=== PATIENT | female | born 1965 | race Caucasian/White ===

== ENCOUNTER 2018-09-23 00:10 | Emergency (ER) | payer SELFPAY ==
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
[2018-09-23] MEDS ORDERED: TETANUS & DIPHTHERIA TOX,ADULT 0.5 ML VIAL ONE (02:07)
[2018-09-23] MEDS ORDERED: HYDROCODONE/APAP 7.5/325 MG TAB ONE (02:07)
[2018-09-23 02:32] VITALS: BP 129/76; TEMP 97.7; O2SAT 99
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
== END 2018-09-23 02:19 | disposition home or self-care (01) ==
LOC: ER 00:10
DX: S90.811A Abrasion, right foot, initial encounter (principal); S90.31XA Contusion of right foot, initial encounter; S50.811A Abrasion of right forearm, initial encounter; M54.5 Low back pain; V48.4XXA Person boarding or alighting a car injured in noncollision transport accident, initial encounter; E03.9 Hypothyroidism, unspecified; F41.9 Anxiety disorder, unspecified; Z88.5 Allergy status to narcotic agent; Z23 Encounter for immunization
CPT/HCPCS: 90471; 90714; 99284

== ENCOUNTER 2019-02-22 18:20 | Emergency (ER) | payer SELFPAY ==
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
[2019-02-22 20:52] LABS: Absolute Lymphocytes (CBC) 2.6 K/uL (0.7-4.9); Basophils % 0.7 % (0-1.3); Hematocrit 38.4 % (36.0-45.0); Lymphocytes % 32.1 % (15.3-44.8); MPV 9.2 fL (7.6-11.3); RBC Red Blood Cell Count 4.45 M/uL (3.86-4.86)
[2019-02-22 21:04] LABS: BUN Blood Urea Nitrogen 20 mg/dL (7-18); Bicarbonate 28 mmol/L (21-32); Glucose Level 98 mg/dL (74-106); Potassium 3.7 mmol/L (3.5-5.1); Sodium Level 144 mmol/L (136-145); Troponin (Emerg Dept Use Only) < 0.02 ng/mL (0.0-0.045)
[2019-02-22] MEDS ORDERED: NA CHLORIDE 0.9% 1,000 ML ONE (21:21)
--- NOTE | 2019-02-22 21:45 | ER ---
Nurse's Notes [facility] Name: Neris Cano Age: 53 yrs Sex: Female : 1965 Arrival Date: 02/22/2019 Time: 18:22 Bed 26 Private MD: Diagnosis: Weakness Presentation: 02/22 18:25 Presenting complaint: Fatigue, sinus pressure, body aches, and headache since this hb morning. Denies fever/cough. Transition of care: patient was not received from another setting of care. Onset of symptoms was February 22, 2019. Risk Assessment: Do you want to hurt yourself or someone else? Patient reports no desire to harm self or others. Initial Sepsis Screen: Does the patient meet any 2 criteria? No. Patient's initial sepsis screen is negative. Does the patient have a suspected source of infection? No. Patient's initial sepsis screen is negative. Care prior to arrival: None. 18:25 Method Of Arrival: Ambulatory hb 18:25 Acuity: KIANA 4 hb Triage Assessment: 20:19 Headache History: Other pt stated she has been having headache for 27 yrs. General: jv1 Appears in no apparent distress. Behavior is calm, cooperative, appropriate for age. Pain: Pain. Pain: Complains of pain in head Pain began 1 day ago. Also complains of fatigue. EENT: No deficits noted. Neuro: No deficits noted. Cardiovascular: Denies chest pain, shortness of breath. Respiratory: Airway is patent Breath sounds are clear GI: No deficits noted. Abdomen is round Bowel sounds present X 4 quads. : No signs and/or symptoms were reported regarding the genitourinary system. Reports. Derm: No signs and/or symptoms reported regarding the dermatologic system. Skin is intact, is healthy with good turgor, Skin is Skin is pink, warm \T\ dry. Skin temperature is warm. Musculoskeletal: No deficits noted. No signs and/or symptoms reported regarding the musculoskeletal system. 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 - Social history:: Smoking status: Patient/guardian denies using tobacco. - Ebola Screening: : No symptoms or risks identified at this time. Screenin:18 Abuse screen: Denies threats or abuse. Nutritional screening: No deficits noted. jv1 Tuberculosis screening: No symptoms or risk factors identified. Fall Risk None identified. Assessment: 20:00 General: Appears in no apparent distress. Behavior is calm, cooperative, appropriate jv1 for age. Pain: Complains of pain in head Pain does not radiate. Pain currently is 5 out of 10 on a pain scale. Quality of pain is described as aching. Neuro: No deficits noted. Cardiovascular: Denies chest pain, diaphoresis, pt complains of fatigue. Respiratory: Reports Airway is patent Breath sounds are clear bilaterally. GI: No deficits noted. : No signs and/or symptoms were reported regarding the genitourinary system. EENT: No signs and/or symptoms were reported regarding the EENT system. Derm: Skin is intact, is healthy with good turgor, Skin is dry, Skin is pink, warm \T\ dry. Musculoskeletal: No signs and/or symptoms reported regarding the musculoskeletal system. 21:00 Reassessment: Patient appears in no apparent distress at this time. Patient is alert, jv1 oriented x 3, equal unlabored respirations, skin warm/dry/pink. 22:00 Reassessment: Patient appears in no apparent distress at this time. Patient and/or jv1 family updated on plan of care and expected duration. Pain level reassessed. Patient is alert, oriented x 3, equal unlabored respirations, skin warm/dry/pink. 22:00 Reassessment: Patient appears in no apparent distress at this time. Patient and/or jv1 family updated on plan of care and expected duration. Pain level reassessed. Patient is alert, oriented x 3, equal unlabored respirations, skin warm/dry/pink. IV bolus finished. 22:00 Reassessment: Patient appears in no apparent distress at this time. Patient and/or jv1 family updated on plan of care and expected duration. Pain level reassessed. Patient is alert, oriented x 3, equal unlabored respirations, skin warm/dry/pink. Vital Signs: 18:28 BP 134 / 71; Pulse 71; Resp 16; Temp 97.8; Pulse Ox 99% on R/A; Weight 117.93 kg; hb Height 5 ft. 4 in. (162.56 cm); Pain 4/10; 19:30 BP 135 / 70; Pulse 70; Resp 18; Temp 98; Pulse Ox 100% ; jv1 20:30 BP 133 / 73; Pulse 75; Resp 18; Temp 98; Pulse Ox 100% ; jv1 21:30 BP 125 / 70; Pulse 70; Resp 18; Temp 98.1; Pulse Ox 100% ; jv1 22:30 BP 115 / 70; Pulse 69; Resp 18; Temp 98.5; Pulse Ox 100% ; Pain 0/10; jv1 18:28 Body Mass Index 44.63 (117.93 kg, 162.56 cm) hb ED Course: 18:22 Patient arrived in ED. as 18:27 Triage completed. hb 18:28 Arm band placed on. hb 19:53 Jeffrey Williamson MD is Attending Physician. 20:25 XRAY Chest (1 view) In Process Unspecified. EDMS 20:25 Patient has correct armband on for positive identification. Bed in low position. Call jv1 light in reach. Side rails up X 1. Adult w/ patient. 20:30 Inserted saline lock: 22 gauge in left antecubital area, using aseptic technique. labs jv1 drawn and sent to lab. 21:25 Liam Saavedra, LUCRETIA is Primary Nurse. mg2 22:30 No provider procedures requiring assistance completed. IV discontinued, intact, jv1 bleeding controlled, No redness/swelling at site. Pressure dressing applied. Administered Medications: 21:25 Drug: NS 0.9% 1000 ml Route: IV; Rate: 1 bolus; Site: left antecubital; mg2 22:00 Follow up: Response: No adverse reaction jv1 22:55 Follow up: Response: No adverse reaction; IV Status: Completed infusion; IV Intake: mg2 1000ml Intake: 22:55 IV: 1000ml; Total: 1000ml. mg2 Outcome: 21:43 Discharge ordered by . gs 22:39 Discharged to home ambulatory, with significant other. jv1 22:39 Condition: improved 22:39 Discharge instructions given to Instructed on discharge instructions, follow up and referral plans. POC 22:56 Patient left the ED. mg2 Signatures: Dispatcher [employer] EDIA Gladys Cano Heather, RN RN Jeffrey Williamson MD MD Liam Saavedra RN RN mg2 Venice Lozoya RN RN jv1 Corrections: (The following items were deleted from the chart) 22: 21:11 General: Appears in no apparent distress. Behavior is calm, cooperative, jv1 appropriate for age, jv1 : 22:01 BP 135 / 75; Pulse 74 bpm; Resp 18 bpm; Temp 98; Pulse Ox 100% jv1 jv1 : 22:02 Response: No adverse reaction jv1 jv1
--- NOTE | 2019-02-22 21:45 | EDPHYS ---
Physician Documentation [facility] Name: Neris Cano Age: 53 yrs Sex: Female : 1965 Arrival Date: 02/22/2019 Time: 18:22 Bed 26 Private MD: ED Physician Jeffrey Williamson HPI: 02/22 21:34 This 53 yrs old Female presents to ER via Ambulatory with complaints of gs chills body aches. 21:35 Onset: The symptoms/episode began/occurred this morning. Modifying factors: there are gs no obvious modifying factors. Associated signs and symptoms: Pertinent positives: arthralgias, chills, headache, myalgias. Severity of symptoms: At their worst the symptoms were moderate in the emergency department the symptoms are unchanged. The patient has experienced similar episodes in the past, a few times, says headache gradual onset has had similar in the past. The patient has not recently seen a physician. 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 - Social history:: Smoking status: Patient/guardian denies using tobacco. - Ebola Screening: : No symptoms or risks identified at this time. ROS: 21:35 All other systems are negative. gs Exam: 21:35 Head/Face: Normocephalic, atraumatic. Eyes: Pupils equal round and reactive to light, gs extra-ocular motions intact. Lids and lashes normal. Conjunctiva and sclera are non-icteric and not injected. Cornea within normal limits. Periorbital areas with no swelling, redness, or edema. ENT: Nares patent. No nasal discharge, no septal abnormalities noted. Tympanic membranes are normal and external auditory canals are clear. Oropharynx with no redness, swelling, or masses, exudates, or evidence of obstruction, uvula midline. Mucous membranes moist. Neck: Trachea midline, no thyromegaly or masses palpated, and no cervical lymphadenopathy. Supple, full range of motion without nuchal rigidity, or vertebral point tenderness. No Meningismus. Chest/axilla: Normal chest wall appearance and motion. Nontender with no deformity. No lesions are appreciated. Cardiovascular: Regular rate and rhythm with a normal S1 and S2. No gallops, murmurs, or rubs. Normal PMI, no JVD. No pulse deficits. Respiratory: Lungs have equal breath sounds bilaterally, clear to auscultation and percussion. No rales, rhonchi or wheezes noted. No increased work of breathing, no retractions or nasal flaring. Abdomen/GI: Soft, non-tender, with normal bowel sounds. No distension or tympany. No guarding or rebound. No evidence of tenderness throughout. Back: No spinal tenderness. No costovertebral tenderness. Full range of motion. Skin: Warm, dry with normal turgor. Normal color with no rashes, no lesions, and no evidence of cellulitis. MS/ Extremity: Pulses equal, no cyanosis. Neurovascular intact. Full, normal range of motion. Neuro: Awake and alert, GCS 15, oriented to person, place, time, and situation. Cranial nerves II-XII grossly intact. Motor strength 5/5 in all extremities. Sensory grossly intact. Cerebellar exam normal. Normal gait. 21:35 Constitutional: The patient appears alert, awake. 21:35 ECG was reviewed by the Attending Physician. Vital Signs: 18:28 BP 134 / 71; Pulse 71; Resp 16; Temp 97.8; Pulse Ox 99% on R/A; Weight 117.93 kg; hb Height 5 ft. 4 in. (162.56 cm); Pain 4/10; 19:30 BP 135 / 70; Pulse 70; Resp 18; Temp 98; Pulse Ox 100% ; jv1 20:30 BP 133 / 73; Pulse 75; Resp 18; Temp 98; Pulse Ox 100% ; jv1 21:30 BP 125 / 70; Pulse 70; Resp 18; Temp 98.1; Pulse Ox 100% ; jv1 22:30 BP 115 / 70; Pulse 69; Resp 18; Temp 98.5; Pulse Ox 100% ; Pain 0/10; jv1 18:28 Body Mass Index 44.63 (117.93 kg, 162.56 cm) hb MDM: 20:11 Patient medically screened. gs 21:35 Differential diagnosis: viral Infection, bacterial infection, pneumonia cad. Data gs reviewed: vital signs, nurses notes, lab test result(s), EKG, radiologic studies. Counseling: I had a detailed discussion with the patient and/or guardian regarding: the historical points, exam findings, and any diagnostic results supporting the discharge/admit diagnosis, lab results, radiology results, the need for outpatient follow up. Response to treatment: the patient's symptoms have markedly improved after treatment. 02/22 18:28 Order name: Flu; Complete Time: 19:53 hb 02/22 20:13 Order name: Basic Metabolic Panel; Complete Time: 21:08 gs 02/22 20:13 Order name: CBC with Diff; Complete Time: 21: gs 02/22 20:13 Order name: Troponin (emerg Dept Use Only); Complete Time: 21: gs 02/22 20:13 Order name: XRAY Chest (1 view); Complete Time: 20:38 gs 02/22 20:13 Order name: EKG; Complete Time: 20:13 gs 02/22 20:13 Order name: Cardiac monitoring; Complete Time: 21:07 gs 02/22 20:13 Order name: EKG - Nurse/Tech; Complete Time: 21: gs 02/22 20:13 Order name: IV Saline Lock; Complete Time: 21: gs 02/22 20:13 Order name: Labs collected and sent; Complete Time: 21: gs 02/22 20:13 Order name: O2 Per Protocol; Complete Time: 21: 02/22 20:13 Order name: O2 Sat Monitoring; Complete Time: 21:07 gs EC:35 Rate is 64 beats/min. Rhythm is regular. [place] interval is normal. QRS interval is normal. gs QT interval is normal. T waves are Flattened. Clinical impression: NSR w/ Non-specific ST/T Changes. Interpreted by me. Administered Medications: 21:25 Drug: NS 0.9% 1000 ml Route: IV; Rate: 1 bolus; Site: left antecubital; mg2 22:00 Follow up: Response: No adverse reaction jv1 22:55 Follow up: Response: No adverse reaction; IV Status: Completed infusion; IV Intake: mg2 1000ml Disposition: 02/22/19 21:43 Discharged to Home. Impression: Weakness. - Condition is Stable. - Discharge Instructions: Weakness. - Medication Reconciliation Form, Thank You Letter, Antibiotic Education, Prescription Opioid Use form. - Follow up: Private Physician; When: 2 - 3 days; Reason: Re-evaluation by your physician. Signatures: Dispatcher [employer] EDGrace Del Real RN RN Jeffrey Williamson MD MD Liam Saavedra RN RN mg2 Venice Lozoya RN jv1 Corrections: (The following items were deleted from the chart) 22:56 21:43 02/22/2019 21:43 Discharged to Home. Impression: Weakness. Condition is Stable. mg2 Forms are Medication Reconciliation Form, Thank You Letter, Antibiotic Education, Prescription Opioid Use. Follow up: Private Physician; When: 2 - 3 days; Reason: Re-evaluation by your physician. gs
[2019-02-22 23:33] VITALS: O2SAT 100
[2019-02-22 23:38] VITALS: BP 115/70; TEMP 98.5
--- NOTE | 2019-02-23 07:23 | EKG ---
Test Date: 2019-02-22 Test Time: 21:15:44 Vice President Integrated: MEASUREMENT RESULTS: Intervals: Rate: 64 CA: 168 QRSD: 84 QT: 416 QTc: 429 [place]: P: 41 CA: 168 QRS: 45 T: 44 INTERPRETIVE STATEMENTS: Normal sinus rhythm Low voltage QRS Cannot rule out Anterior infarct, age undetermined Abnormal ECG Compared to ECG 01/02/2013 00:46:21 Myocardial infarct finding now present Electronically Signed On 02-23-19 07:21:52 CDT by Jeet Link
== END 2019-02-22 22:56 | disposition home or self-care (01) ==
LOC: ER 18:20
DX: R53.1 Weakness (principal); E03.9 Hypothyroidism, unspecified; Z88.5 Allergy status to narcotic agent; Z91.018 Allergy to other foods
CPT/HCPCS: 36415; 71045; 80048; 84484; 85025; 87804; 93005; 96360; 99284; J7030

== ENCOUNTER 2019-03-18 20:26 | Emergency (ER) | payer BC, SELFPAY ==
--- NOTE | 2019-03-18 21:06 | ER ---
Nurse's Notes [facility] Name: Neris Cano Age: 53 yrs Sex: Female : 1965 Arrival Date: 03/18/2019 Time: 20:27 Bed 24 Private MD: Diagnosis: Streptococcal pharyngitis Presentation: 03/18 20:34 Presenting complaint: Patient states: Sore throat since Tuesday now she is having pain aj1 in her ear and cough. Denies fever. Transition of care: patient was not received from another setting of care. Onset of symptoms was 2018. Risk Assessment: Do you want to hurt yourself or someone else? Patient reports no desire to harm self or others. Initial Sepsis Screen: Does the patient meet any 2 criteria? No. Patient's initial sepsis screen is negative. Does the patient have a suspected source of infection? Yes: Productive cough/pneumonia. Care prior to arrival: None. 20:34 Method Of Arrival: Ambulatory aj1 20:34 Acuity: KIANA 4 aj1 Triage Assessment: 20:35 General: Appears in no apparent distress. uncomfortable, Behavior is calm, cooperative, aj1 appropriate for age. Pain: Pain currently is 6 out of 10 on a pain scale. EENT: Reports sore throat, ear pain. Neuro: Level of Consciousness is awake, alert, obeys commands. Cardiovascular: Patient's skin is warm and dry. Respiratory: Airway is patent Respiratory effort is even, unlabored, Respiratory pattern is regular, symmetrical. 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 - Social history:: Smoking status: Patient/guardian denies using tobacco. - Ebola Screening: : Patient denies travel to an Ebola-affected area in the 21 days before illness onset. Screenin:12 Abuse screen: Denies threats or abuse. Nutritional screening: No deficits noted. tr5 Tuberculosis screening: No symptoms or risk factors identified. Fall Risk None identified. Assessment: 21:12 General: Appears uncomfortable. Pain: Complains of pain in right ear and left ear and tr5 throat. Neuro: Level of Consciousness is awake, alert, obeys commands. Cardiovascular: Heart tones present Respiratory: Airway Respiratory effort is even, unlabored, Respiratory pattern is regular, symmetrical. Respiratory: Reports cough that is. GI: No signs and/or symptoms were reported involving the gastrointestinal system. : No signs and/or symptoms were reported regarding the genitourinary system. EENT: Reports nasal congestion pain. Derm: No signs and/or symptoms reported regarding the dermatologic system. Musculoskeletal: No signs and/or symptoms reported regarding the musculoskeletal system. Vital Signs: 20:35 BP 114 / 83; Pulse 88; Resp 18; Temp 97.5; Pulse Ox 95% on R/A; Weight 117.93 kg (R); aj1 Height 5 ft. 4 in. (162.56 cm) (R); 20:35 Body Mass Index 44.63 (117.93 kg, 162.56 cm) aj1 ED Course: 20:27 Patient arrived in ED. ds1 20:34 Triage completed. aj1 20:35 Arm band placed on Patient placed in waiting room, Patient notified of wait time. aj1 20:45 Summer Ch[facility]vez FNP-C [facility] snw 20:45 Kyaw Monzon MD is Attending Physician. snw 21:00 Jagdish Riggins, LUCRETIA is Primary Nurse. tr5 21:12 Call light in reach. Side rails up X 1. tr5 21:27 No provider procedures requiring assistance completed. Patient did not have IV access tr5 during this emergency room visit. Administered Medications: 21:25 Drug: Decadron 8 mg Route: PO; tr5 21:26 Follow up: Response: Medication administered at discharge. tr5 21:26 Drug: Zithromax 500 mg Route: PO; tr5 21:26 Follow up: Response: Medication administered at discharge. tr5 Outcome: 21:06 Discharge ordered by . snw 21:27 Discharged to home ambulatory. tr5 21:27 Condition: stable 21:27 Discharge instructions given to patient, Instructed on discharge instructions, follow up and referral plans. medication usage, Demonstrated understanding of instructions, follow-up care, medications, Prescriptions given X 2. 21:29 Patient left the ED. tr5 Signatures: Mariangel Teran RN RN aj1 Summer Chávez, LEAD MASSAGE THERAPIST-C LEAD MASSAGE THERAPIST-Csnw Dawn Peters ds1 Jagdish Riggins RN RN tr5
--- NOTE | 2019-03-18 21:07 | EDPHYS ---
Physician Documentation [facility] Name: Neris Cano Age: 53 yrs Sex: Female : 1965 Arrival Date: 03/18/2019 Time: 20:27 Bed 24 Private MD: ED Physician Kyaw Monzon HPI: 03/18 21:30 This 53 yrs old Female presents to ER via Ambulatory with complaints of Sore snw Throat, Ear Pain. 21:30 The patient presents with sore throat. The patient describes throat pain as raw, snw scratchy. Onset: The symptoms/episode began/occurred suddenly, 3 day(s) ago, and became persistent. Severity of symptoms: At their worst the symptoms were moderate. Associated signs and symptoms: Pertinent positives: earache. It is unknown whether or not the patient has had similar symptoms in the past. The patient has not recently seen a physician. 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 - Social history:: Smoking status: Patient/guardian denies using tobacco. - Ebola Screening: : Patient denies travel to an Ebola-affected area in the 21 days before illness onset. ROS: 21:28 Eyes: Negative for injury, pain, redness, and discharge. snw 21:28 Neck: Negative for injury, pain, and swelling, Cardiovascular: Negative for chest pain, palpitations, and edema, Respiratory: Negative for shortness of breath, cough, wheezing, and pleuritic chest pain, Abdomen/GI: Negative for abdominal pain, nausea, vomiting, diarrhea, and constipation, Back: Negative for injury and pain, : Negative for injury, bleeding, discharge, and swelling, MS/Extremity: Negative for injury and deformity, Skin: Negative for injury, rash, and discoloration, Neuro: Negative for headache, weakness, numbness, tingling, and seizure, Psych: Negative for depression, anxiety, suicide ideation, homicidal ideation, and hallucinations. 21:28 Constitutional: Positive for body aches, malaise, poor PO intake. 21:28 ENT: Positive for ear pain, sore throat. Exam: 21:28 Constitutional: This is a well developed, well nourished patient who is awake, alert, snw and in no acute distress. Head/Face: Normocephalic, atraumatic. Eyes: Pupils equal round and reactive to light, extra-ocular motions intact. Lids and lashes normal. Conjunctiva and sclera are non-icteric and not injected. Cornea within normal limits. Periorbital areas with no swelling, redness, or edema. ENT: Nares patent. No nasal discharge, no septal abnormalities noted. Tympanic membranes are normal and external auditory canals are clear. Oropharynx with no redness, swelling, or masses, exudates, or evidence of obstruction, uvula midline. Mucous membranes moist. Neck: Trachea midline, no thyromegaly or masses palpated, and no cervical lymphadenopathy. Supple, full range of motion without nuchal rigidity, or vertebral point tenderness. No Meningismus. Chest/axilla: Normal chest wall appearance and motion. Nontender with no deformity. No lesions are appreciated. Cardiovascular: Regular rate and rhythm with a normal S1 and S2. No gallops, murmurs, or rubs. Normal PMI, no JVD. No pulse deficits. Respiratory: Lungs have equal breath sounds bilaterally, clear to auscultation and percussion. No rales, rhonchi or wheezes noted. No increased work of breathing, no retractions or nasal flaring. Abdomen/GI: Soft, non-tender, with normal bowel sounds. No distension or tympany. No guarding or rebound. No evidence of tenderness throughout. Back: No spinal tenderness. No costovertebral tenderness. Full range of motion. Skin: Warm, dry with normal turgor. Normal color with no rashes, no lesions, and no evidence of cellulitis. MS/ Extremity: Pulses equal, no cyanosis. Neurovascular intact. Full, normal range of motion. Neuro: Awake and alert, GCS 15, oriented to person, place, time, and situation. Cranial nerves II-XII grossly intact. Motor strength 5/5 in all extremities. Sensory grossly intact. Cerebellar exam normal. Normal gait. Psych: Awake, alert, with orientation to person, place and time. Behavior, mood, and affect are within normal limits. Vital Signs: 20:35 BP 114 / 83; Pulse 88; Resp 18; Temp 97.5; Pulse Ox 95% on R/A; Weight 117.93 kg (R); aj1 Height 5 ft. 4 in. (162.56 cm) (R); 20:35 Body Mass Index 44.63 (117.93 kg, 162.56 cm) aj1 MDM: 20:59 Patient medically screened. snw 03/18 20:28 Order name: Flu; Complete Time: 21:07 snw 03/18 20:28 Order name: Strep; Complete Time: 21:01 snw Administered Medications: 21:25 Drug: Decadron 8 mg Route: PO; tr5 21:26 Follow up: Response: Medication administered at discharge. tr5 21:26 Drug: Zithromax 500 mg Route: PO; tr5 21:26 Follow up: Response: Medication administered at discharge. tr5 Disposition: 03/19 00:40 Co-signature as Attending Physician, Kyaw Monzon MD. rn Disposition: 03/18/19 21:06 Discharged to Home. Impression: Streptococcal pharyngitis. - Condition is Stable. - Discharge Instructions: Fever, Adult, Strep Throat, Upper Respiratory Infection, Adult, Rehydration, Adult. - Prescriptions for Tessalon Perles 100 mg Oral Capsule - take 1 capsule by ORAL route every 8 hours As needed; 15 capsule. Zithromax 500 mg Oral Tablet - take 1 tablet by ORAL route once daily for 5 days; 5 tablet. - Work release form, Medication Reconciliation Form, Thank You Letter, Antibiotic Education, Prescription Opioid Use form. - Follow up: Private Physician; When: 2 - 3 days; Reason: Recheck today's complaints, Continuance of care, Re-evaluation by your physician. Follow up: Emergency Department; When: As needed; Reason: Worsening of condition. Signatures: Dispatcher [employer] Mariangel Fields RN RN aj1 Summer Chávez, SORTER OPERATOR-C SORTER OPERATOR-Csnw Kyaw Monzon MD MD rn Rodriguez, Tommie, RN RN tr5 Corrections: (The following items were deleted from the chart) 03/18 21:29 21:06 03/18/2019 21:06 Discharged to Home. Impression: Streptococcal pharyngitis. tr5 Condition is Stable. Forms are Medication Reconciliation Form, Thank You Letter, Antibiotic Education, Prescription Opioid Use. Follow up: Private Physician; When: 2 - 3 days; Reason: Recheck today's complaints, Continuance of care, Re-evaluation by your physician. Follow up: Emergency Department; When: As needed; Reason: Worsening of condition. snw
[2019-03-18] MEDS ORDERED: AZITHROMYCIN 250 MG TAB ONE (21:23)
[2019-03-18] MEDS ORDERED: dexAMETHasone 4 MG TAB ONE (21:23)
[2019-03-18 22:16] VITALS: BP 114/83; TEMP 97.5; O2SAT 95
== END 2019-03-18 21:29 | disposition home or self-care (01) ==
LOC: ER 20:26
DX: J02.0 Streptococcal pharyngitis (principal); Z91.018 Allergy to other foods; Z88.6 Allergy status to analgesic agent; E03.9 Hypothyroidism, unspecified
CPT/HCPCS: 87081; 87804; 99283; J8540

== ENCOUNTER 2019-06-16 11:24 | Emergency (ER) | payer BC ==
[2019-06-16] MEDS ORDERED: HYDROCODONE/APAP 10/325 TAB ONE (12:17)
[2019-06-16] MEDS ORDERED: IBUPROFEN 400 MG TAB ONE (12:17)
--- NOTE | 2019-06-16 12:32 | ER ---
Nurse's Notes [facility] Name: Neris Cano Age: 53 yrs Sex: Female : 1965 Arrival Date: 06/16/2019 Time: 11:26 Bed 6 Private MD: Jose Sadler Diagnosis: Pain in left foot-retrocalcaneal bursitis;Calcaneal spur, left foot Presentation: 06/16 11:35 Presenting complaint: Patient states: R ankle pain that patient noticed last night. No ss known injury. Transition of care: patient was not received from another setting of care. Onset of symptoms was June 15, 2019. Risk Assessment: Do you want to hurt yourself or someone else? Patient reports no desire to harm self or others. Initial Sepsis Screen: Does the patient meet any 2 criteria? No. Patient's initial sepsis screen is negative. Does the patient have a suspected source of infection? No. Patient's initial sepsis screen is negative. Care prior to arrival: None. 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 - Coronavirus screen:: The patient has NOT traveled to [place] in the past 14 days. Proceed with normal triage process as indicated. - Social history:: Smoking status: Patient denies any tobacco usage or history of. - Ebola Screening: : Patient denies exposure to infectious person Patient denies travel to an Ebola-affected area in the 21 days before illness onset. Screenin:10 Abuse screen: Denies threats or abuse. Nutritional screening: No deficits noted. em Tuberculosis screening: No symptoms or risk factors identified. Fall Risk None identified. Assessment: 12:10 General: Appears in no apparent distress. comfortable, Behavior is calm, cooperative. em Pain: Complains of pain in medial aspect of left heel and lateral side of left heel Pain currently is 0 out of 10 on a pain scale. at worst was 9 out of 10 on a pain scale. Aggravated by exercise, repositioning, weight bearing. Neuro: Level of Consciousness is awake, alert, obeys commands, Oriented to person, place, time, situation, Appropriate for age. Cardiovascular: Capillary refill < 3 seconds Patient's skin is warm and dry. Respiratory: Airway is patent Respiratory effort is even, unlabored, Respiratory pattern is regular, symmetrical. Derm: Skin is intact, is healthy with good turgor, Skin is pink, warm \T\ dry. Musculoskeletal: Circulation, motion, and sensation intact. Capillary refill < 3 seconds, Range of motion: limited in right ankle Swelling present in right ankle. 13:23 Reassessment: Patient appears in no apparent distress at this time. Patient and/or em family updated on plan of care and expected duration. Pain level reassessed. Patient is alert, oriented x 3, equal unlabored respirations, skin warm/dry/pink. Patient states feeling better. Vital Signs: 11:34 BP 142 / 63; Pulse 79; Resp 17; Temp 98.4(O); Pulse Ox 99% on R/A; Pain 7/10; ss 11:34 Weight 117.93 kg; Height 5 ft. 4 in. (162.56 cm); ss 12:30 BP 109 / 65; Pulse 77; Resp 17 S; Pulse Ox 99% on R/A; jl7 13:13 BP 100 / 61; Pulse 72; Resp 16 S; Pulse Ox 99% on R/A; jl7 11:34 Body Mass Index 44.63 (117.93 kg, 162.56 cm) ED Course: 11:26 Patient arrived in ED. mr 11:27 Jose Sadler is Private Physician. mr 11:30 Minh Norris MD is Attending Physician. rashida 11:34 Arm band placed on right wrist. ss 11:35 Triage completed. ss 11:52 Riaz Soto, LUCRETIA is Primary Nurse. em 12:10 Patient has correct armband on for positive identification. Bed in low position. Call em light in reach. Adult w/ patient. Pulse ox on. NIBP on. 12:31 Jose Sadler is Referral Physician. rashida 12:31 Poncho Palomo MD is Referral Physician. rashida 13:21 No provider procedures requiring assistance completed. Patient did not have IV access em during this emergency room visit. Administered Medications: 12:17 Drug: Ibuprofen 800 mg Route: PO; em 13:20 Follow up: Response: No adverse reaction; Pain is decreased em 12:17 Drug: Norwell 10 mg-325 mg 1 tabs Route: PO; em 13:20 Follow up: Response: No adverse reaction; Pain is decreased; RASS: Alert and Calm (0) em Outcome: 12:32 Discharge ordered by . rashida 13:22 Discharged to home with crutches, with family. em 13:22 Condition: good 13:22 Discharge instructions given to patient, family, Instructed on discharge instructions, follow up and referral plans. medication usage, Demonstrated understanding of instructions, follow-up care, medications, crutch walking, Prescriptions given X 2. 13:23 Patient left the ED. em Signatures: Minh Norris MD MD cha Rivera, Mary mr Munoz, Edgar RN RN Stephanie Franco RN RN ss Leal, Jahala, RN RN jl7
--- NOTE | 2019-06-16 12:33 | EDPHYS ---
Physician Documentation [facility] Name: Neris Cano Age: 53 yrs Sex: Female : 1965 Arrival Date: 06/16/2019 Time: 11:26 Bed 6 Private MD: Jose Sadler ED Physician Minh Norris HPI: 06/16 11:56 This 53 yrs old Female presents to ER via Ambulatory with complaints of Ankle rashida Injury. 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 - Coronavirus screen:: The patient has NOT traveled to [place] in the past 14 days. Proceed with normal triage process as indicated. - Social history:: Smoking status: Patient denies any tobacco usage or history of. - Ebola Screening: : Patient denies exposure to infectious person Patient denies travel to an Ebola-affected area in the 21 days before illness onset. ROS: 11:56 Constitutional: Negative for fever, chills, and weight loss, Eyes: Negative for injury, rashida pain, redness, and discharge, ENT: Negative for injury, pain, and discharge, Neck: Negative for injury, pain, and swelling, Cardiovascular: Negative for chest pain, palpitations, and edema, Respiratory: Negative for shortness of breath, cough, wheezing, and pleuritic chest pain, Abdomen/GI: Negative for abdominal pain, nausea, vomiting, diarrhea, and constipation, Back: Negative for injury and pain, : Negative for injury, bleeding, discharge, and swelling, Skin: Negative for injury, rash, and discoloration, Neuro: Negative for headache, weakness, numbness, tingling, and seizure, Psych: Negative for depression, anxiety, suicide ideation, homicidal ideation, and hallucinations, Allergy/Immunology: Negative for hives, rash, and allergies, Endocrine: Negative for neck swelling, polydipsia, polyuria, polyphagia, and marked weight changes, Hematologic/Lymphatic: Negative for swollen nodes, abnormal bleeding, and unusual bruising. 11:56 MS/extremity: Positive for pain, of the lateral side of left heel and medial aspect of left heel. Exam: 11:56 Constitutional: This is a well developed, well nourished patient who is awake, alert, rashida and in no acute distress. Head/Face: Normocephalic, atraumatic. Eyes: Pupils equal round and reactive to light, extra-ocular motions intact. Lids and lashes normal. Conjunctiva and sclera are non-icteric and not injected. Cornea within normal limits. Periorbital areas with no swelling, redness, or edema. ENT: Nares patent. No nasal discharge, no septal abnormalities noted. Tympanic membranes are normal and external auditory canals are clear. Oropharynx with no redness, swelling, or masses, exudates, or evidence of obstruction, uvula midline. Mucous membranes moist. Neck: Trachea midline, no thyromegaly or masses palpated, and no cervical lymphadenopathy. Supple, full range of motion without nuchal rigidity, or vertebral point tenderness. No Meningismus. Chest/axilla: Normal chest wall appearance and motion. Nontender with no deformity. No lesions are appreciated. Cardiovascular: Regular rate and rhythm with a normal S1 and S2. No gallops, murmurs, or rubs. Normal PMI, no JVD. No pulse deficits. Respiratory: Lungs have equal breath sounds bilaterally, clear to auscultation and percussion. No rales, rhonchi or wheezes noted. No increased work of breathing, no retractions or nasal flaring. Abdomen/GI: Soft, non-tender, with normal bowel sounds. No distension or tympany. No guarding or rebound. No evidence of tenderness throughout. Back: No spinal tenderness. No costovertebral tenderness. Full range of motion. Skin: Warm, dry with normal turgor. Normal color with no rashes, no lesions, and no evidence of cellulitis. Neuro: Awake and alert, GCS 15, oriented to person, place, time, and situation. Cranial nerves II-XII grossly intact. Motor strength 5/5 in all extremities. Sensory grossly intact. Cerebellar exam normal. Normal gait. Psych: Awake, alert, with orientation to person, place and time. Behavior, mood, and affect are within normal limits. 11:56 Musculoskeletal/extremity: Extremities: noted in the lateral side of left heel and medial aspect of left heel: decreased ROM, pain. Vital Signs: 11:34 BP 142 / 63; Pulse 79; Resp 17; Temp 98.4(O); Pulse Ox 99% on R/A; Pain 7/10; ss 11:34 Weight 117.93 kg; Height 5 ft. 4 in. (162.56 cm); ss 12:30 BP 109 / 65; Pulse 77; Resp 17 S; Pulse Ox 99% on R/A; jl7 13:13 BP 100 / 61; Pulse 72; Resp 16 S; Pulse Ox 99% on R/A; jl7 11:34 Body Mass Index 44.63 (117.93 kg, 162.56 cm) MDM: 11:30 Patient medically screened. [facility] 12:01 Data reviewed: vital signs, nurses notes, radiologic studies. [facility] 06/16 11:56 Order name: Foot Left 3 View XRAY [facility] 06/16 11:56 Order name: Ice pack; Complete Time: 13:20 [facility] 06/16 12:06 Order name: Post-op shoe; Complete Time: 13:20 [facility] 06/16 12:06 Order name: Crutches; Complete Time: 13:20 [facility] Administered Medications: 12:17 Drug: Ibuprofen 800 mg Route: PO; em 13:20 Follow up: Response: No adverse reaction; Pain is decreased em 12:17 Drug: Putnam 10 mg-325 mg 1 tabs Route: PO; em 13:20 Follow up: Response: No adverse reaction; Pain is decreased; RASS: Alert and Calm (0) em Disposition: 06/16/19 12:32 Discharged to Home. Impression: Pain in left foot - retrocalcaneal bursitis, Calcaneal spur, left foot. - Condition is Stable. - Discharge Instructions: Bursitis, Heel Spur, Musculoskeletal Pain, Bursitis, [id number], Foot Pain. - Prescriptions for Ibuprofen 600 mg Oral Tablet - take 1 tablet by ORAL route every 6 hours As needed take with food; 20 tablet. Tramadol 50 mg Oral Tablet - take 2 tablet by ORAL route every 8 hours as needed; 30 tablet. - Medication Reconciliation Form, Thank You Letter, Antibiotic Education, Prescription Opioid Use, Work release form form. - Follow up: Jose Sadler; When: 2 - 3 days; Reason: Recheck today's complaints, Continuance of care, Re-evaluation by your physician. Follow up: Dr. Poncho Palomo; When: 2 - 3 days; Reason: Recheck today's complaints, Re-evaluation by your physician. - Problem is new. - Symptoms have improved. Signatures: Dispatcher [employer] Minh Sanabria MD MD cha Munoz, Edgar, RN RN Stephanie Franco RN RN ss Corrections: (The following items were deleted from the chart) 13:23 12:32 06/16/2019 12:32 Discharged to Home. Impression: Pain in left foot - em retrocalcaneal bursitis; Calcaneal spur, left foot. Condition is Stable. Discharge Instructions: Bursitis, Musculoskeletal Pain, Bursitis, [id number], Foot Pain. Prescriptions for Ibuprofen 600 mg Oral Tablet - take 1 tablet by ORAL route every 6 hours As needed take with food; 20 tablet, Tramadol 50 mg Oral Tablet - take 2 tablet by ORAL route every 8 hours as needed; 30 tablet. and Forms are Medication Reconciliation Form, Thank You Letter, Antibiotic Education, Prescription Opioid Use. Follow up: Jose Sadler; When: 2 - 3 days; Reason: Recheck today's complaints, Continuance of care, Re-evaluation by your physician. Follow up: Dr. Poncho Palomo; When: 2 - 3 days; Reason: Recheck today's complaints, Re-evaluation by your physician. Problem is new. Symptoms have improved. rashida
--- NOTE | 2019-06-16 13:39 | RAD REPORT ---
EXAM DESCRIPTION: RAD - Foot Right 3 View - 06/16/2019 12:20 pm CLINICAL HISTORY: PAIN, nontraumatic COMPARISON: Foot Right 3 View dated 09/23/2018 FINDINGS: No fracture, dislocation or periosteal reaction. No acute bone or joint finding. Patient h as a moderately large plantar spur and a large spur at the Achilles attachment. Mild IP joint degener ative changes are present. There is mild degenerative change at the tarsal metatarsal articulation. B one and joint findings are similar to the 2018 comparison. No air or foreign body in the soft tissues. IMPRESSION: Negative right foot for acute finding. Above detailed findings are similar to the September 18 comparison.
[2019-06-16 13:40] VITALS: TEMP 98.4; O2SAT 99
[2019-06-16 13:49] VITALS: BP 100/61
== END 2019-06-16 13:23 | disposition home or self-care (01) ==
LOC: ER 11:24
DX: M77.31 Calcaneal spur, right foot (principal); M77.51 Other enthesopathy of right foot and ankle; Z91.018 Allergy to other foods; Z88.6 Allergy status to analgesic agent
CPT/HCPCS: 99284

== ENCOUNTER 2020-07-10 20:42 | Emergency (ER) | payer BC ==
--- OUTSIDE RECORDS SUMMARY | 2020-07-10 20:43 | XMS REPORT | Continuity of Care Document ---
:1965 Author Organization [facility] t Address [address] [place] [address] Care Team Providers Name Role Phone Unavailable Unavailable Unavailable Payers Payer Name Policy Type Policy Number Effective Date Expiration Date S ource Problems This patient has no known problems. Allergies, Adverse Reactions, Alerts This patient has no known allergies or adverse reactions. Medications This patient has no known medications. Procedures This patient has no known procedures. Results This patient has no known results.
[2020-07-11] MEDS ORDERED: NA CHLORIDE 0.9% 1,000 ML ONE (00:07)
[2020-07-11] MEDS ORDERED: MECLIZINE HCL 12.5 MG TAB ONE (00:07)
[2020-07-11] MEDS ORDERED: PROMETHAZINE INJ 25 MG/ML AMP ONE (00:07)
[2020-07-11] MEDS ORDERED: DIAZEPAM 10 MG/2 ML INJ SYRINGE ONE (00:43)
[2020-07-11 00:49] LABS: Basophils % 0.6 % (0-1.3); Hematocrit 41.5 % (36.0-45.0); Lymphocytes % 21.8 % (15.3-44.8); MPV 9.6 fL (7.6-11.3); RBC Red Blood Cell Count 4.93 M/uL (3.86-4.86)
[2020-07-11 01:04] LABS: ALT/SGPT 29 U/L (12-78); AST/SGOT 15 U/L (15-37); Albumin 3.8 g/dL (3.4-5.0); Alkaline Phosphatase 103 U/L (45-117); BUN Blood Urea Nitrogen 23 mg/dL (7-18); Bicarbonate 27 mmol/L (21-32); Bilirubin Direct < 0.1 mg/dL (0-0.2); Bilirubin Total 0.3 mg/dL (0.2-1.0); Glucose Level 102 mg/dL (74-106); Potassium 4.4 mmol/L (3.5-5.1); Protein, Total 7.7 g/dL (6.4-8.2); Sodium Level 140 mmol/L (136-145)
[2020-07-11 01:05] LABS: Lipase 126 U/L (73-393)
--- NOTE | 2020-07-11 01:44 | EDPHYS ---
Physician Documentation [facility] Name: Neris Cano Age: 54 yrs Sex: Female : 1965 Arrival Date: 07/10/2020 Time: 20:45 Bed 24 Private MD: ED Physician Pascual Brito HPI: 07/10 23:27 This 54 yrs old Female presents to ER via Ambulatory with complaints of ma2 Vertigo. 23:27 Onset: The symptoms/episode began/occurred suddenly, 1 day(s) ago. Associated signs and ma2 symptoms: Pertinent positives: Pertinent negatives: agitation, ataxia, chest pain, confusion, diaphoresis, focal weakness, headache, numbness, palpitations, , seizure, syncope. Severity of symptoms: At their worst the symptoms were very mild in the emergency department the symptoms have resolved. The patient has experienced similar episodes in the past. this is similar to prior episode patient has vertigo that is positional only when she turn head to left, she has neck pain sp neck massage, no headache on other symptoms, symptoms are mild and resolved . 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 - Social history:: Smoking status: Patient denies any tobacco usage or history of. - Family history:: not pertinent. ROS: 23:27 Constitutional: Negative for fever, chills, and weight loss. ma2 23:27 All other systems are negative. Exam: 23:27 Constitutional: This is a well developed, well nourished patient who is awake, alert, ma2 and in no acute distress. Head/Face: Normocephalic, atraumatic. Eyes: Pupils equal round and reactive to light, extra-ocular motions intact. Lids and lashes normal. Conjunctiva and sclera are non-icteric and not injected. Cornea within normal limits. Periorbital areas with no swelling, redness, or edema. ENT: Nares patent. No nasal discharge, no septal abnormalities noted. Tympanic membranes are normal and external auditory canals are clear. Oropharynx with no redness, swelling, or masses, exudates, or evidence of obstruction, uvula midline. Mucous membranes moist. Neck: Trachea midline, no thyromegaly or masses palpated, and no cervical lymphadenopathy. Supple, full range of motion without nuchal rigidity, or vertebral point tenderness. No Meningismus. Chest/axilla: Normal chest wall appearance and motion. Nontender with no deformity. No lesions are appreciated. Cardiovascular: Regular rate and rhythm with a normal S1 and S2. No gallops, murmurs, or rubs. Normal PMI, no JVD. No pulse deficits. Respiratory: Lungs have equal breath sounds bilaterally, clear to auscultation and percussion. No rales, rhonchi or wheezes noted. No increased work of breathing, no retractions or nasal flaring. Abdomen/GI: Soft, non-tender, with normal bowel sounds. No distension or tympany. No guarding or rebound. No evidence of tenderness throughout. Skin: Warm, dry with normal turgor. Normal color with no rashes, no lesions, and no evidence of cellulitis. MS/ Extremity: Pulses equal, no cyanosis. Neurovascular intact. Full, normal range of motion. Neuro: Awake and alert, GCS 15, oriented to person, place, time, and situation. Cranial nerves II-XII grossly intact. Motor strength 5/5 in all extremities. Sensory grossly intact. Cerebellar exam normal. Normal gait. Vital Signs: 20:51 BP 128 / 70; Pulse 76; Resp 16 S; Temp 97.2(TE); Pulse Ox 98% ; Weight 115.67 kg (R); ca1 Height 5 ft. 4 in. (162.56 cm) (R); Pain 0/10; 0312 00:30 BP 108 / 50; Pulse 67; Resp 16; Pulse Ox 98% on R/A; jb4 01:30 BP 102 / 49; Pulse 66; Resp 16; Pulse Ox 100% on R/A; jb4 02:00 BP 111 / 64; Pulse 67; Resp 18; Pulse Ox 100% on R/A; jb4 07/10 20:51 Body Mass Index 43.77 (115.67 kg, 162.56 cm) ca1 MDM: 07/10 23:01 Patient medically screened. ma2 23:27 Differential diagnosis: idiopathic dizziness, vertigo, likely benign positional ma2 vertigo, unlikely stroke or central vertigo or basilar vessels disease . 07/11 01:43 Data reviewed: vital signs, nurses notes. Counseling: I had a detailed discussion with [facility] the patient and/or guardian regarding: the historical points, exam findings, and any diagnostic results supporting the discharge/admit diagnosis, the presence of at least one elevated blood pressure reading (>120/80) during this emergency department visit, the need for outpatient follow up. Response to treatment: the patient's symptoms have markedly improved after treatment. 07/10 23:24 Order name: Basic Metabolic Panel; Complete Time: 01:19 [facility] 07/10 23:24 Order name: CBC with Diff [facility] 07/10 23:24 Order name: Hepatic Function; Complete Time: : [facility] 07/10 23:24 Order name: Lipase; Complete Time: :19 [facility] 07/10 23:24 Order name: CT C Spine [facility] 07/11 00:51 Order name: CBC with Automated Diff; Complete Time: : EDMS 07/10 23:24 Order name: Labs collected and sent; Complete Time: 00:43 [facility] 07/10 23:24 Order name: IV Saline Lock; Complete Time: 00:43 [facility] 07/10 23:24 Order name: CT Head Brain wo Cont ut2 Administered Medications: 00:40 Drug: NS 0.9% 1000 ml Route: IV; Rate: 1 bolus; Site: right hand; jb4 01:40 Follow up: Response: No adverse reaction; IV Status: Completed infusion; IV Intake: jb4 1000ml 00:40 Drug: Meclizine 50 mg Route: PO; jb4 01:10 Follow up: Response: No adverse reaction; Marked relief of symptoms jb4 00:40 Drug: Valium 1 mg Route: IVP; Site: right hand; jb4 01:10 Follow up: Response: No adverse reaction; Marked relief of symptoms jb4 00:43 Not Given (Patient Refused): Phenergan 12.5 mg IVP once jb4 Disposition: 07/11/20 01:44 Discharged to Home. Impression: Benign paroxysmal vertigo - left. - Condition is Stable. - Discharge Instructions: Benign Positional Vertigo. - Prescriptions for Meclizine 25 mg Oral Tablet - take 1 tablet by ORAL route every 8 hours As needed; 30 tablet. promethazine 25 mg Oral Tablet - take 1 tablet by ORAL route every 6 hours As needed; 20 tablet. - Medication Reconciliation Form, Thank You Letter, Antibiotic Education, Prescription Opioid Use form. - Follow up: Sanjuanita Chen MD; When: Tomorrow; Reason: If symptoms return, Continuance of care. Signatures: Dispatcher [employer] EDSC Ap Hale RN RN jb4 Pascual Brito MD MD ma2 [place] RN RN ca1 Corrections: (The following items were deleted from the chart) 02:17 07/10 23:24 Urine Dipstick-Ancillary ordered. ma2 jb4 07/11 02:18 01:44 07/11/2020 01:44 Discharged to Home. Impression: Benign paroxysmal vertigo - jb4 left. Condition is Stable. Prescriptions for Meclizine 25 mg Oral Tablet - take 1 tablet by ORAL route every 8 hours As needed; 30 tablet. and Forms are Medication Reconciliation Form, Thank You Letter, Antibiotic Education, Prescription Opioid Use. Follow up: Sanjuanita Chen; When: Tomorrow; Reason: If symptoms return, Continuance of care. ma2
--- NOTE | 2020-07-11 01:44 | ER ---
Nurse's Notes [facility] Name: Neris Cano Age: 54 yrs Sex: Female : 1965 Arrival Date: 07/10/2020 Time: 20:45 Bed 24 Private MD: Diagnosis: Benign paroxysmal vertigo-left Presentation: 07/10 20:51 Chief complaint: Patient states: Extreme vertigo, dizzy and nauseous when I move my ca1 head to the said, move suddenly. Started today. Coronavirus screen: Client denies travel out of the [place] in the last 14 days. nausea, Client presents with at least one sign or symptom that may indicate coronavirus-19. Standard/surgical mask placed on the client. Provider contacted for isolation considerations. Ebola Screen: Patient negative for fever greater than or equal to 101.5 degrees Fahrenheit, and additional compatible Ebola Virus Disease symptoms Patient denies exposure to infectious person. Patient denies travel to an Ebola-affected area in the 21 days before illness onset. No symptoms or risks identified at this time. Initial Sepsis Screen: Does the patient meet any 2 criteria? No. Patient's initial sepsis screen is negative. Does the patient have a suspected source of infection? No. Patient's initial sepsis screen is negative. Risk Assessment: Do you want to hurt yourself or someone else? Patient reports no desire to harm self or others. Onset of symptoms was July 10, 2020. 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 - Social history:: Smoking status: Patient denies any tobacco usage or history of. - Family history:: not pertinent. Screenin:15 Abuse screen: Denies threats or abuse. Nutritional screening: No deficits noted. jb4 Tuberculosis screening: No symptoms or risk factors identified. Fall Risk None identified. Assessment: 23:15 General: Appears in no apparent distress. comfortable, Behavior is calm, cooperative, jb4 appropriate for age. Pain: Denies pain. Neuro: Level of Consciousness is awake, alert, obeys commands, Oriented to person, place, time, situation. Cardiovascular: Patient's skin is warm and dry. Respiratory: Airway is patent Respiratory effort is even, unlabored, Respiratory pattern is regular, symmetrical. GI: No signs and/or symptoms were reported involving the gastrointestinal system. : No signs and/or symptoms were reported regarding the genitourinary system. EENT: No signs and/or symptoms were reported regarding the EENT system. Derm: Skin is intact, Skin is pink, warm \T\ dry. Musculoskeletal: Circulation, motion, and sensation intact. Range of motion: intact in all extremities. 07/11 00:30 Reassessment: Patient appears in no apparent distress at this time. Patient and/or jb4 family updated on plan of care and expected duration. Pain level reassessed. Patient is alert, oriented x 3, equal unlabored respirations, skin warm/dry/pink. 01:30 Reassessment: Patient appears in no apparent distress at this time. Patient and/or jb4 family updated on plan of care and expected duration. Pain level reassessed. Patient is alert, oriented x 3, equal unlabored respirations, skin warm/dry/pink. 02:15 Reassessment: Patient appears in no apparent distress at this time. Patient and/or jb4 family updated on plan of care and expected duration. Pain level reassessed. Patient is alert, oriented x 3, equal unlabored respirations, skin warm/dry/pink. Vital Signs: 07/10 20:51 BP 128 / 70; Pulse 76; Resp 16 S; Temp 97.2(TE); Pulse Ox 98% ; Weight 115.67 kg (R); ca1 Height 5 ft. 4 in. (162.56 cm) (R); Pain 0/10; 07/11 00:30 BP 108 / 50; Pulse 67; Resp 16; Pulse Ox 98% on R/A; jb4 01:30 BP 102 / 49; Pulse 66; Resp 16; Pulse Ox 100% on R/A; jb4 02:00 BP 111 / 64; Pulse 67; Resp 18; Pulse Ox 100% on R/A; jb4 07/10 20:51 Body Mass Index 43.77 (115.67 kg, 162.56 cm) ca1 ED Course: 07/10 20:45 Patient arrived in ED. ag3 20:53 Triage completed. ca1 20:54 Arm band placed on right wrist. ca1 23:01 Pascual Brito MD is Attending Physician. ma2 23:15 Patient has correct armband on for positive identification. Bed in low position. Call jb4 light in reach. Side rails up X 1. Pulse ox on. NIBP on. 23:28 Ap Hale RN is Primary Nurse. jb4 07/11 00:40 Initial lab(s) drawn, by id, sent to lab. Inserted saline lock: 20 gauge in right hand, jb4 using aseptic technique. Blood collected. 01:02 CT C Spine In Process Unspecified. EDMS 01:02 CT Head Brain wo Cont In Process Unspecified. EDMS 01:43 Sanjuanita Chen MD is Referral Physician. ma2 02:16 No provider procedures requiring assistance completed. IV discontinued, intact, jb4 bleeding controlled, No redness/swelling at site. Pressure dressing applied. Administered Medications: 00:40 Drug: NS 0.9% 1000 ml Route: IV; Rate: 1 bolus; Site: right hand; jb4 01:40 Follow up: Response: No adverse reaction; IV Status: Completed infusion; IV Intake: jb4 1000ml 00:40 Drug: Meclizine 50 mg Route: PO; jb4 01:10 Follow up: Response: No adverse reaction; Marked relief of symptoms jb4 00:40 Drug: Valium 1 mg Route: IVP; Site: right hand; jb4 01:10 Follow up: Response: No adverse reaction; Marked relief of symptoms jb4 00:43 Not Given (Patient Refused): Phenergan 12.5 mg IVP once jb4 Intake: 01:40 IV: 1000ml; Total: 1000ml. jb4 Outcome: 01:44 Discharge ordered by . ma2 02:16 Discharged to home ambulatory. jb4 02:16 Condition: stable 02:16 Discharge instructions given to patient, Instructed on discharge instructions, follow up and referral plans. medication usage, Demonstrated understanding of instructions, follow-up care, medications, Prescriptions given X 2. 02:18 Patient left the ED. jb4 Signatures: Dispatcher [employer] EDID Ap Hale RN RN jb4 Pascual Brito MD MD maSue Rawls ag3 Acalisa, Angeles, RN RN ca1
[2020-07-11 02:36] VITALS: TEMP 97.2
[2020-07-11 02:40] VITALS: O2SAT 100
[2020-07-11 02:41] VITALS: BP 111/64
--- NOTE | 2020-07-11 10:47 | RAD REPORT ---
EXAM DESCRIPTION: CT HEAD WITHOUT IV CONTRAST (accession [id number]) CLINICAL HISTORY: PAIN TECHNIQUE: Contiguous axial CT images obtained through the brain without IV contrast. Coronal and sa gittal reformatted images were provided. This exam was performed according to our departmental dose-optimization program, which includes autom ated exposure control, adjustment of the mA and/or kV according to patient size and/or use of iterati ve reconstruction technique. COMPARISON: 02/25/2017 FINDINGS: Brain: No significant white matter changes. No focal mass effect. Donohue-white matter differ entiation is within normal limits. No hemorrhage. Ventricles: No ventriculomegaly or midline shift. Extra-axial spaces: No extra-axial collection or hemorrhage. Paranasal sinuses and mastoid air cells: Well-aerated Vessels: Unremarkable Bones: Unremarkable Soft tissues: Unremarkable EXAM DESCRIPTION: CT CERVICAL SPINE WITHOUT IV CONTRAST (accession [id number]) CLINICAL HISTORY: PAIN TECHNIQUE: Contiguous axial CT images obtained through the cervical spine without IV contrast. Coron al and sagittal reformatted images also provided. This exam was performed according to our departmental dose-optimization program, which includes autom ated exposure control, adjustment of the mA and/or kV according to patient size and/or use of iterati ve reconstruction technique. COMPARISON: None available for comparison FINDINGS: Vertebra: No acute fracture or subluxation. Disc spaces: Mild to moderate multilevel degenerative changes manifested by mild to moderate disc deg eneration, small to moderate concentric disc osteophytes and mild to moderate moderate multilevel fac et arthropathy, left greater than right. No critical canal stenosis. Prevertebral soft tissues: Unremarkable Lung apices: Clear Other: 2.1 cm hypodense nodule with peripheral calcification in the right lobe of the thyroid. IMPRESSION: CT HEAD: No acute intracranial or extra-axial abnormality. CT CERVICAL: 1. No acute injury. 2. 2.1 cm right thyroid nodule. Recommend thyroid US. Reference: J Am [employer]iol. 2015 Jun;12(2): 143-50 Electronically signed by: Lucina Min MD 07/11/2020 12:32 AM [employer]ING [employer] LEADER Due to temporary technical issues with the PACS/Fluency reporting system, reports are being signed by the in house radiologists without review as a courtesy to insure prompt reporting. The interpreting radiologist is fully responsible for the content of the report.
--- NOTE | 2020-07-11 17:25 | RAD REPORT ---
EXAM DESCRIPTION: CT HEAD WITHOUT IV CONTRAST (accession [id number]) CLINICAL HISTORY: PAIN TECHNIQUE: Contiguous axial CT images obtained through the brain without IV contrast. Coronal and sa gittal reformatted images were provided. This exam was performed according to our departmental dose-optimization program, which includes autom ated exposure control, adjustment of the mA and/or kV according to patient size and/or use of iterati ve reconstruction technique. COMPARISON: 02/25/2017 FINDINGS: Brain: No significant white matter changes. No focal mass effect. Donohue-white matter differ entiation is within normal limits. No hemorrhage. Ventricles: No ventriculomegaly or midline shift. Extra-axial spaces: No extra-axial collection or hemorrhage. Paranasal sinuses and mastoid air cells: Well-aerated Vessels: Unremarkable Bones: Unremarkable Soft tissues: Unremarkable EXAM DESCRIPTION: CT CERVICAL SPINE WITHOUT IV CONTRAST (accession [id number]) CLINICAL HISTORY: PAIN TECHNIQUE: Contiguous axial CT images obtained through the cervical spine without IV contrast. Coron al and sagittal reformatted images also provided. This exam was performed according to our departmental dose-optimization program, which includes autom ated exposure control, adjustment of the mA and/or kV according to patient size and/or use of iterati ve reconstruction technique. COMPARISON: None available for comparison FINDINGS: Vertebra: No acute fracture or subluxation. Disc spaces: Mild to moderate multilevel degenerative changes manifested by mild to moderate disc deg eneration, small to moderate concentric disc osteophytes and mild to moderate moderate multilevel fac et arthropathy, left greater than right. No critical canal stenosis. Prevertebral soft tissues: Unremarkable Lung apices: Clear Other: 2.1 cm hypodense nodule with peripheral calcification in the right lobe of the thyroid. IMPRESSION: CT HEAD: No acute intracranial or extra-axial abnormality. CT CERVICAL: 1. No acute injury. 2. 2.1 cm right thyroid nodule. Recommend thyroid US. Reference: J Am Justa Radiol. 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 The interpreting radiologist is fully responsible for the content of the report.
== END 2020-07-11 02:18 | disposition home or self-care (01) ==
LOC: ER 20:42
DX: H81.12 Benign paroxysmal vertigo, left ear (principal); E03.9 Hypothyroidism, unspecified; F41.9 Anxiety disorder, unspecified
CPT/HCPCS: 96361; 85025; 80048; 36415; 80076; 83690; 70450; 72125; 96374; 99284; J3360; J2550

== ENCOUNTER 2021-03-11 06:11 | Emergency (ER) | payer BC ==
--- NOTE | 2021-03-11 07:46 | RAD REPORT ---
EXAM DESCRIPTION: US - Extrem Venous W Compress Rehan - 03/11/2021 7:38 am CLINICAL HISTORY: Pain and swelling COMPARISON: None. TECHNIQUE: Real-time sonographic evaluation of the bilateral lower extremity deep venous systems was performed. FINDINGS: Normal compressibility, flow augmentation, phasic flow and spontaneous flow is identified in both the left and right lower extremity deep venous systems. No intraluminal filling defects seen. IMPRESSION: No DVT in either lower extremity.
--- NOTE | 2021-03-11 07:49 | EDPHYS ---
Physician Documentation [facility] Name: Neris Cano Age: 55 yrs Sex: Female : 1965 Arrival Date: 03/11/2021 Time: 06:16 Bed 15 Private MD: ED Physician Sohail Bhat HPI: 03/11 07:05 This 55 yrs old Female presents to ER via Ambulatory with complaints of Leg jr8 Swelling - Both. 07:05 Onset: The symptoms/episode began/occurred today. Associated signs and symptoms: The jr8 patient has no apparent associated signs or symptoms. Severity of symptoms: At their worst the symptoms were mild, in the emergency department the symptoms are unchanged. It is unknown whether or not the patient has had similar symptoms in the past. The patient has not recently seen a physician. This is a 55-year-old female patient that presented to the emergency room with complaints of bilateral lower leg pain and swelling to the calves. Patient a few years ago had vein closures on both side for venous insufficiency. Woke up this morning and was shaving when she noticed the pain and swelling on both sides more so on the left than right.. 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 - Social history:: Smoking status: Patient denies any tobacco usage or history of. Patient/guardian denies using alcohol, street drugs. ROS: 07:05 Constitutional: Negative for fever, chills, and weight loss. jr8 07:05 Cardiovascular: Negative for chest pain, palpitations, and edema, Respiratory: Negative for shortness of breath, cough, wheezing, and pleuritic chest pain, Abdomen/GI: Negative for abdominal pain, nausea, vomiting, diarrhea, and constipation, Back: Negative for injury and pain, Skin: Negative for injury, rash, and discoloration, Neuro: Negative for headache, weakness, numbness, tingling, and seizure. 07:05 MS/extremity: Positive for pain, swelling, tenderness, of the medial aspect of left calf and right calf. Exam: 07:05 Constitutional: This is a well developed, well nourished patient who is awake, alert, jr8 and in no acute distress. Cardiovascular: Regular rate and rhythm with a normal S1 and S2. No gallops, murmurs, or rubs. Normal PMI, no JVD. No pulse deficits. Respiratory: Lungs have equal breath sounds bilaterally, clear to auscultation and percussion. No rales, rhonchi or wheezes noted. No increased work of breathing, no retractions or nasal flaring. Skin: Warm, dry with normal turgor. Normal color with no rashes, no lesions, and no evidence of cellulitis. Neuro: Awake and alert, GCS 15, oriented to person, place, time, and situation. Cranial nerves II-XII grossly intact. Motor strength 5/5 in all extremities. Sensory grossly intact. 07:05 Musculoskeletal/extremity: Extremities: Patient has tenderness to bilateral medial aspects of her calves. Both calves symmetric with no calf leg discrepancy in circumference. Mild tenderness to the left medial calf. Pedal pulses 3+ bilaterally with normal sensation to both extremities. No discoloration of either extremity noted. Remainder of the rest of her extremities unremarkable.. Vital Signs: 06:53 BP 119 / 77; Pulse 89; Resp 18; Temp 98.4; Pulse Ox 99% on R/A; Weight 102.06 kg; mr2 Height 5 ft. (152.40 cm); Pain 4/10; 08:20 BP 138 / 73; Pulse 72; Resp 19; Temp 98; Pulse Ox 97% on R/A; jt3 06:53 Body Mass Index 43.94 (102.06 kg, 152.40 cm) mr2 MDM: 06:32 Patient medically screened. jr8 07:47 Data reviewed: vital signs, nurses notes, radiologic studies, ultrasound. Data jr8 interpreted: Pulse oximetry: on room air is 99 %. Interpretation: normal. Counseling: I had a detailed discussion with the patient and/or guardian regarding: the historical points, exam findings, and any diagnostic results supporting the discharge/admit diagnosis, radiology results, the need for outpatient follow up, a family practitioner, to return to the emergency department if symptoms worsen or persist or if there are any questions or concerns that arise at home. ED course: Discussed with patient that there is no signs of superficial thrombophlebitis or deep venous thrombosis at this time. Recommended follow-up with primary care physician keep a close eye on her legs over the next couple days. If symptoms were to worsen or she were to have new involvement of symptoms to come back for further evaluation. Patient good with this at this time.. 07:47 Differential diagnosis: Lymphedema, venous insufficiency, deep venous thrombosis, jr8 superficial thrombophlebitis, arterial insufficiency, medication side effect. 03/11 06:55 Order name: US Extremity Venous W Compression Rehan; Complete Time: 07:46 jr8 Administered Medications: No medications were administered Disposition: 03/12 05:47 Co-signature as Attending Physician, Sohail Bhat MD I agree with the assessment and sp3 plan of care. Disposition Summary: 03/11/21 07:48 Discharge Ordered Location: Home jr8 Problem: new jr8 Symptoms: have improved jr8 Condition: Stable jr8 Diagnosis - Pain in left lower leg jr8 - Pain in right lower leg jr8 Followup: jr8 - With: Private Physician - When: 2 - 3 days - Reason: Recheck today's complaints, Continuance of care, Re-evaluation by your physician Discharge Instructions: - Discharge Summary Sheet jr8 - Pain Without a Known Cause jr8 Forms: - Medication Reconciliation Form jr8 - Thank You Letter jr8 - Antibiotic Education jr8 - Prescription Opioid Use jr8 Signatures: Dispatcher [employer] EDMS Sánchez Jones PA PA jr8 Sohail Bhat MD MD sp3 Seth Rushing RN RN mr2 Corrections: (The following items were deleted from the chart) 03/11 07:48 07:47 Differential diagnosis: Lymphedema, venous insufficiency, deep venous thrombosis, jr8 superficial thrombophlebitis, medication side effect jr8
--- NOTE | 2021-03-11 07:49 | ER ---
Nurse's Notes [facility] Name: Neris Cano Age: 55 yrs Sex: Female : 1965 Arrival Date: 03/11/2021 Time: 06:16 Bed 15 Private MD: Diagnosis: Pain in left lower leg;Pain in right lower leg Presentation: 03/11 06:37 Chief complaint: Patient states: pt reports prior hx of vascular surgery bilaterally on mr2 lower legs for past 2 days lle has become swollen and painful. pt denies sob denies taking any blood thinners. Coronavirus screen: Vaccine status: Patient reports receiving the 2nd dose of the covid vaccine. Ebola Screen: No symptoms or risks identified at this time. Initial Sepsis Screen: Does the patient meet any 2 criteria?. Risk Assessment: Do you want to hurt yourself or someone else? Patient reports no desire to harm self or others. Onset of symptoms was March 09, 2021. 06:37 Method Of Arrival: Ambulatory mr2 06:37 Acuity: KIANA 3 mr2 06:53 Initial Sepsis Screen: Does the patient meet any 2 criteria? No. Patient's initial mr2 sepsis screen is negative. Does the patient have a suspected source of infection? No. Patient's initial sepsis screen is negative. Triage Assessment: 06:41 General: Appears in no apparent distress. Behavior is calm, cooperative. Pain: mr2 Complains of pain in right leg and medial aspect of left calf. 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 - Social history:: Smoking status: Patient denies any tobacco usage or history of. Patient/guardian denies using alcohol, street drugs. Screenin:20 Abuse screen: Denies threats or abuse. Denies injuries from another. Nutritional jt3 screening: No deficits noted. Tuberculosis screening: No symptoms or risk factors identified. Fall Risk None identified. Assessment: 07:20 General: Appears in no apparent distress. Behavior is calm, cooperative. jt3 Cardiovascular: No deficits noted. Respiratory: No deficits noted. Musculoskeletal: Reports Pt. reports bilateral leg swelling. Endorses pain more in left leg. No redness noted on either leg. Vital Signs: 06:53 BP 119 / 77; Pulse 89; Resp 18; Temp 98.4; Pulse Ox 99% on R/A; Weight 102.06 kg; mr2 Height 5 ft. (152.40 cm); Pain 4/10; 08:20 BP 138 / 73; Pulse 72; Resp 19; Temp 98; Pulse Ox 97% on R/A; jt3 06:53 Body Mass Index 43.94 (102.06 kg, 152.40 cm) mr2 ED Course: 06:16 Patient arrived in ED. 06:32 Sánchez Jones PA is PHCP. jr8 06:32 Sohail Bhat MD is Attending Physician. jr8 06:41 Triage completed. mr2 06:41 Arm band placed on. mr2 07:20 Jae Pendleton, RN is Primary Nurse. jt3 07:20 Patient has correct armband on for positive identification. Bed in low position. Call jt3 light in reach. Side rails up X2. 07:20 No provider procedures requiring assistance completed. jt3 07:37 US Extremity Venous W Compression Rehan In Process Unspecified. EDMS 08:24 Patient did not have IV access during this emergency room visit. jt3 Administered Medications: No medications were administered Outcome: 07:48 Discharge ordered by . jr8 08:22 Discharged to home ambulatory. jt3 08:22 Condition: good 08:22 Discharge instructions given to patient, Instructed on discharge instructions, Demonstrated understanding of instructions. 08:24 Patient left the ED. jt3 Signatures: Dispatcher [employer] EDMS Sánchez Jones PA PA jr8 Stacie Grace Seth Rushing RN RN mr2 Jae Pendleton, RN RN jt3
[2021-03-11 08:53] VITALS: BP 138/73; TEMP 98; O2SAT 97
--- OUTSIDE RECORDS SUMMARY | 2021-03-14 18:55 | XMS REPORT | Continuity of Care Document ---
:1965 Author Organization [facility] t Address [address] [place] [address] Care Team Providers Name Role Phone Jose Sadler MD Primary Care Physician Doctor Unassigned, Name Attending Clinician Unavailable Doyle Juarez Attending Clinician Unavailable Lab, Covid Attending Clinician Unavailable Lab, Fam Pob I Attending Clinician Unavailable Ester Purdy Attending Clinician Ester CHAPIN Attending Clinician Unavailable Physician, Primary or Family Admitting Clinician Unavailabl e Payers Payer Name Policy Type Policy Number Effective Date Expiration Date S ource Problems This patient has no known problems. Allergies, Adverse Reactions, Alerts Allergy Allergy Status Severity Reaction(s) Onset Inactive Treating Comm ents Source Name Type Date Date Clinician NO KNOWN Drug Active Univers ALLERGIE Class ity of S [facility] Social History Social Habit Start Date Stop Date Quantity Comments Source Exposure to Not sure [facility] SARS-CoV-2 (event) Medica l Branch Sex Assigned At [birth year] [facility] 00:00:00 00:00:00 [facility] Smoking Status Start Date Stop Date Source Unknown if ever smoked [facility] Medications This patient has no known medications. Procedures Procedure Date / Time Performed Performing Clinician [facility] e REFERRAL- 2021-03-03 05:01:00 Doctor Unassigned, No Univer [facility] REQUEST/RESPONSE Name Medical Branch Encounters Start End Encounter Admission Attending Care Care Encounter Source Date/Time Date/Time Type Type Clinicians Facility Department ID 2021-03-03 2021-03-03 Orders Doctor HERB [id number] Univers 00:00:00 00:00:00 Only Unassigned, BRUNO [id number] [place] [facility] [id number] Leonel as [phone] [place] [address] Branch 2020-09-30 2020-09-30 Outpatient ROHITH Juarez, [facility] [id number] 01-19 [facility] 12:00:00 12:00:00 Dolar [id number] [facility] 2020-07-14 2020-07-14 Letter Lab, Pcp [facility] [id number] 00:00:00 00:00:00 (Out) [facility] [id number] [place] [id number] Professio [phone] nal [facility] Office Building One 2020-07-14 2020-07-14 Letter Lab, Pcp [facility] [id number] Univers 00:00:00 00:00:00 (Out) Covid Health [id number] it y of [place] [id number] Leonel as Professio [phone] Ct dicva nal [address] [place] [address] Office Building One 2020-07-11 2020-07-11 Laboratory Lab, Adc [facility] [id number] 14:24:35 14:44:35 Only Fam Pob I Health [id number] [place] [id number] Professio [phone] nal [facility] Office Building One 2020-07-11 2020-07-11 Laboratory Lab, Adc Fam Pob I [facility] 1.2. 840.114 [id number] [facility] 14:24:35 14:44:35 Only Loyd Chapin [facility] [id number] ity of [place] [id number] Leonel as Professio [phone] Ct dicva nal [address] [place] [address] Office Building One 2020-07-11 2020-07-11 Outpatient R [facility] [id number] Univers 14:20:00 14:20:00 LOYD araujo [facility] 2019-09-25 2019-09-25 [facility] [id number] 01-19 [facility] 12:00:00 12:00:00 Cheo [id number] [facility] Results This patient has no known results.
== END 2021-03-11 08:24 | disposition home or self-care (01) ==
LOC: ER 06:11
DX: M79.605 Pain in left leg (principal); M79.604 Pain in right leg; E03.9 Hypothyroidism, unspecified; F41.9 Anxiety disorder, unspecified; Z88.6 Allergy status to analgesic agent
CPT/HCPCS: 93970; 99283

== ENCOUNTER 2022-04-03 18:07 | Emergency (ER) | payer BC ==
--- OUTSIDE RECORDS SUMMARY | 2022-04-03 18:11 | XMS REPORT | Continuity of Care Document ---
:1965 Author Organization [facility] t Address [address] [place] [address] Care Team Providers Name Role Phone Jose Sadler MD Primary Care Physician Ceho Juarez Attending Clinician Unavailable Kendall LONDONO, Mariaelena Attending Clinician Iza BOYKIN, Madelaine Castro Attending Clinician Unavailable MARIAELENA HU Attending Clinician Unavailable Doctor Unassigned, [place] Attending Clinician Unavailable Lab, Pcp Covid Attending Clinician Unavailable Lab, Adc Fam Pob I Attending Clinician Unavailable Sylvia Purdy Attending Clinician SYLVIA CHAPIN Attending Clinician Unavailable Cheo Juarez Admitting Clinician Unavailable Physician, No Primary or Family Admitting Clinician Unavaila ble Payers Payer Name Policy Type Policy Number Effective Date Expiration Date S ource Problems Condition Condition Condition Status Onset Resolution Last Treating Co mments Source Name Details Category Date Date Treatment Clinician Date No known No known Disease Unive rs active active ity of problems problems [facility] Allergies, Adverse Reactions, Alerts Allergy Allergy Status Severity Reaction(s) Onset Inactive Treating Comm ents Source Name Type Date Date Clinician NO KNOWN Drug Active Univers ALLERGIE Class ity of S [facility] Social History Social Habit Start Date Stop Date Quantity Comments Source Exposure to Yes [facility] SARS-CoV-2 (event) Medica l Branch Tobacco use and 2021-05-04 2021-05-04 Never used [facility] [place] exposure 00:00:00 00:00:00 Medical Branch Sex Assigned At [birth year] [facility] 00:00:00 00:00:00 Medical Branch Smoking Status Start Date Stop Date Source Unknown if ever smoked [facility] Medical Branch Never smoker [facility] Medical Branch Medications Ordered Filled Start Stop Current Ordering Indication Dosage Frequency Signature Comments Components Source Medication Medication Date Date Medication? Clinician (SIG) Name Name guaiFENesin 2021-0 Yes [id number] 400mg Take 1 Univers 400 mg 1-03 tablet by ity of tablet 00:00: mouth [place] 00 every 4 Medical (four) Branch hours as needed for Cough. benzonatate 2021-0 Yes [id number] 200mg Take 2 Univers 100 mg 1-03 capsules [place] of capsule 00:00: [place] (two) Medical times Branch daily as needed for Cough. codeine-gua 2021-0 Yes 5mL Take 5 mL U nivers ifenesin 1-03 by mouth ity of 10-100 mg/5 00:00: every 6 [place] as mL oral 00 (six) Medical solution hours as Branch needed for Cough. Indication s: cough guaiFENesin 2021-0 Yes [id number] 400mg Take 1 Univers 400 mg 1-03 tablet by ity of tablet 00:00: mouth [place] 00 every 4 Medical (four) Branch hours as needed for Cough. benzonatate 2021-0 Yes [id number] 200mg Take 2 Univers 100 mg 1-03 capsules [place]y of capsule 00:00: [place] (two) Medical times Branch daily as needed for Cough. codeine-gua 2021-0 Yes 5mL Take 5 mL U nivers ifenesin 1-03 by mouth ity of 10-100 mg/5 00:00: every 6 Leonel as mL oral 00 (six) Medical solution hours as Branch needed for Cough. Indication s: cough guaiFENesin 2021-0 Yes [id number] 400mg Take 1 Univers 400 mg 1-03 tablet by ity of tablet 00:00: mouth [place] 00 every 4 Medical (four) Branch hours as needed for Cough. benzonatate 2021-0 Yes [id number] 200mg Take 2 Univers 100 mg 1-03 capsules ity of capsule 00:00: [place] mouth [place] 00 (two) Medical times Branch daily as needed for Cough. codeine-gua 0 Yes 5mL Take 5 mL U nivers ifenesin 1-03 by mouth ity of 10-100 mg/5 00:00: every 6 Leonel as mL oral 00 (six) Medical solution hours as Branch needed for Cough. Indication s: cough Vital Signs Vital Name Observation Time Observation Value Comments Source Systolic blood 2021-05-04 15:12:00 133 mm[Hg] Univer [facility]ity [facility] Diastolic blood 2021-05-04 15:12:00 81 mm[facility]Hg[facility] 2021-05-04 15:12:00 90 /min [facility] Body temperature 2021-05-04 15:12:00 36.61 [facility] Respiratory rate 2021-05-04 15:12:00 16 /min [facility] Body height 2021-05-04 15:12:00 162.6 cm [facility] Body weight 2021-05-04 15:12:00 127.971 kg [facility] BMI 2021-05-04 15:12:00 48.43 kg/m2 [facility] Oxygen saturation in 2021-05-04 15:12:00 97 /min [facility] Arterial blood by [facility] Pulse oximetry [place] Procedures Procedure Date / Time Performed Performing Clinician Sourc e POCT MOLECULAR FLU 2021-05-04 15:22:00 Mariaelena Hu [facility] REFERRAL- 2021-03-03 05:01:00 Doctor Unassigned, No [facility] REQUEST/RESPONSE Name [facility] Encounters Start End Encounter Admission Attending Care Care Encounter Source Date/Time Date/Time Type Type Clinicians Facility Department ID 2021-11-09 2021-11-09 Outpatient ROHITH Juarez [facility] [id number] [facility] 12:00:00 12:00:00 Dolar 86 [facility] 2021-06-15 2021-06-15 RefROBBIE Quiñonez 1.2.840.114 [id number] Univers 00:00:00 00:00:00 Mariaelena HEALTH [id number] it y of [place] [id number] Leonel as JULIANO?BLEA [phone] [address] MEDICAL OFFICE BUILDING 2021-05-05 2021-05-05 Letter HERB Couch 1.2.840.114 [id number] Univers 00:00:00 00:00:00 (Out) Madelaine Castro BRUNO [id number] it y of HOSPITAL [id number] Leonel as [phone] [facility] 0[address] [place] 2021-05-04 2021-05-04 Outpatient R [facility]ALL [facility] [id number] Univers 09:20:00 09:59:46 MARIAELENA ity of [facility] 2021-05-04 2021-05-04 Urgent Kendall [facility] [id number] Univers 09:20:00 09:40:00 Care Mariaelena HEALTH [id number] it y of [place] [id number] Leonel as JULIANO?BLEA [phone] [address] MEDICAL OFFICE BUILDING 2021-03-03 2021-03-03 Orders Doctor HERB 1.2.840.114 [id number] Univers 00:00:00 00:00:00 Only Unassigned, BRUNO [id number] ity of [place] [facility] [id number] Leonel as [phone] [address] 2020-09-30 2020-09-30 Outpatient ROHITH Juarez, [facility] [id number] [facility] 12:00:00 12:00:00 Dolar 04 [facility] 2020-07-14 2020-07-14 Letter Lab, Pcp LAMB 1.2.840.114 [id number] 00:00:00 00:00:00 (Out) Cov[facility] Health [id number] [place] [id number] Professio [phone] nal [address] 2020-07-14 2020-07-14 Letter Lab, Pcp [facility] 1.2.840.114 [id number] Univers 00:00:00 00:00:00 (Out) Covid Health [id number] it y of [place] [id number] Leonel as Professio [phone] [address] Office [address] One 2020-07-11 2020-07-11 Laboratory Lab, [facility] Fam Pob I [facility] 1.2. 840.114 [id number] Univers 14:24:35 14:44:35 Only Sylvia [facility] [id number] ity of [place] [id number] Leonel as Professio [phone] [address] Office Building One 2020-07-11 2020-07-11 Laboratory Lab, [facility] 1.2.840.114 [id number] 14:24:35 14:44:35 Only Fam Pob I Health [id number] [place] [id number] Professio [phone] [place] [address] [address] 2020-07-11 2020-07-11 Outpatient R [facility] [id number] [facility] 14:20:00 14:20:00 SYLVIA gayle [facility] 2019-09-25 2019-09-25 Outpatient ROHITH Larry, [facility] [id number] [facility] 12:00:00 12:00:00 Dolar 90 [facility] Results Test Description Test Time Test Comments Results Result Comments Source POCT MOLECULAR FLU 2021-05-04 15:33:58 Test Item Value Reference Range Interpretation Comme nts POCT Molecular FluA (test code = 48149-9) Negative Negative POCT Molecular FluB (test code = 33367-3) Negative Negative Lab Interpretation (test code = 71476-6) Normal [facility]
[2022-04-03] MEDS ORDERED: KETOROLAC 30 MG/ML INJ ONE (19:02)
--- NOTE | 2022-04-03 19:44 | ER ---
Nurse's Notes [facility] Name: Neris Cano Age: 56 yrs Sex: Female : 1965 Arrival Date: 04/03/2022 Time: 18:09 Bed DIS3 Private MD: Diagnosis: Pain in right wrist Presentation: 04/03 18:53 Chief complaint: Patient states: Spontaneous onset of right wrist pain and swelling x2 kb3 days. Denies injury. Coronavirus screen: Vaccine status: Patient reports receiving the 2nd dose of the covid vaccine. Client denies travel out of the [place] in the last 14 days. Ebola Screen: Patient negative for fever greater than or equal to 101.5 degrees Fahrenheit, and additional compatible Ebola Virus Disease symptoms Patient denies exposure to infectious person. Patient denies travel to an Ebola-affected area in the 21 days before illness onset. Initial Sepsis Screen: Does the patient meet any 2 criteria? No. Patient's initial sepsis screen is negative. Does the patient have a suspected source of infection? No. Patient's initial sepsis screen is negative. Risk Assessment: Do you want to hurt yourself or someone else? Patient reports no desire to harm self or others. Onset of symptoms was April 01, 2022. 18:53 Method Of Arrival: Ambulatory kb3 18:53 Acuity: KIANA 4 kb3 Triage Assessment: 18:54 General: Appears in no apparent distress. Behavior is calm, cooperative. Pain: kb3 Complains of pain in right wrist Pain does not radiate. Pain currently is 7 out of 10 on a pain scale. Quality of pain is described as throbbing. 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 - Social history:: Smoking status: Patient denies any tobacco usage or history of. Screenin:50 Abuse screen: Denies threats or abuse. Denies injuries from another. Nutritional tw5 screening: No deficits noted. Tuberculosis screening: No symptoms or risk factors identified. Fall Risk None identified. Assessment: 19:50 Reassessment: Patient states feeling better. Patient states symptoms have improved. tw5 Vital Signs: 18:53 BP 140 / 48; Pulse 78; Resp 18; Temp 97.1; Pulse Ox 100% ; Weight 124.74 kg; Height 5 kb3 ft. 4 in. (162.56 cm); Pain 7/10; 18:53 Body Mass Index 47.20 (124.74 kg, 162.56 cm) kb3 ED Course: 18:09 Patient arrived in ED. rg4 18:14 Summer Miller [facility]-C [facility] snw 18:14 Minh Norris MD is Attending Physician. snw 18:54 Triage completed. kb3 18:54 Arm band placed on left wrist. kb3 19:50 Sasha Zamora is Primary Nurse. tw5 19:50 Patient has correct armband on for positive identification. tw5 19:50 No provider procedures requiring assistance completed. Patient did not have IV access tw5 during this emergency room visit. Administered Medications: 19:22 Drug: Ketorolac 30 mg Route: IM; Site: left ventrogluteal; kb3 19:51 Follow up: Response: No adverse reaction tw5 Medication: 19:50 VIS not applicable for this client. tw5 Outcome: 19:43 Discharge ordered by . snw 19:50 Discharged to home ambulatory. tw5 19:50 Condition: good 19:50 Discharge instructions given to patient, Instructed on discharge instructions, follow up and referral plans. medication usage, Demonstrated understanding of instructions, follow-up care, medications. 19:51 Patient left the ED. tw5 Signatures: Summer Miller FNP-C FNP-Zoila Mckeon rg4 Sasha Zamora tw5 Shellie Deleon, RN RN kb3 Corrections: (The following items were deleted from the chart) 18:55 18:54 Home Meds: "thyroid medication"; kb3 kb3
--- NOTE | 2022-04-03 19:44 | EDPHYS ---
Physician Documentation [facility] Name: Neris Cano Age: 56 yrs Sex: Female : 1965 Arrival Date: 04/03/2022 Time: 18:09 Bed DIS3 Private MD: ED Physician Minh Norris HPI: 04/03 18:24 This 56 yrs old Female presents to ER via Unassigned with complaints of Wrist Pain. snw 18:24 The patient or guardian reports decreased range of motion, pain, swelling. Context: The snw problem was sustained at home, resulted from an unknown cause. Onset: The symptoms/episode began/occurred suddenly, the more pt wrote today the more the medial right wrist hurt. Modifying factors: The symptoms are alleviated by holding still, the symptoms are aggravated by movement, pressure. Associated signs and symptoms: Pertinent negatives: cyanosis distally, decreased sensation distally, numbness distally, tingling distally. The patient has not experienced similar symptoms in the past. pt was seen recently by an retirement specialist, allergic to shellfish. 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 - Social history:: Smoking status: Patient denies any tobacco usage or history of. ROS: 18:23 Constitutional: Negative for fever, chills, and weight loss, Eyes: Negative for injury, snw pain, redness, and discharge, ENT: Negative for injury, pain, and discharge, Neck: Negative for injury, pain, and swelling, Cardiovascular: Negative for chest pain, palpitations, and edema, Respiratory: Negative for shortness of breath, cough, wheezing, and pleuritic chest pain, Abdomen/GI: Negative for abdominal pain, nausea, vomiting, diarrhea, and constipation, Back: Negative for injury and pain, : Negative for injury, bleeding, discharge, and swelling, Skin: Negative for injury, rash, and discoloration, Neuro: Negative for headache, weakness, numbness, tingling, and seizure, Psych: Negative for depression, anxiety, suicide ideation, homicidal ideation, and hallucinations. 18:23 MS/extremity: Positive for decreased range of motion, tenderness, of the medial aspect of right wrist. Exam: 18:22 Constitutional: This is a well developed, well nourished patient who is awake, alert, snw and in no acute distress. Head/Face: Normocephalic, atraumatic. Eyes: Pupils equal round and reactive to light, extra-ocular motions intact. Lids and lashes normal. Conjunctiva and sclera are non-icteric and not injected. Cornea within normal limits. Periorbital areas with no swelling, redness, or edema. ENT: Nares patent. No nasal discharge, no septal abnormalities noted. Tympanic membranes are normal and external auditory canals are clear. Oropharynx with no redness, swelling, or masses, exudates, or evidence of obstruction, uvula midline. Mucous membranes moist. Neck: Trachea midline, no thyromegaly or masses palpated, and no cervical lymphadenopathy. Supple, full range of motion without nuchal rigidity, or vertebral point tenderness. No Meningismus. Chest/axilla: Normal chest wall appearance and motion. Nontender with no deformity. No lesions are appreciated. Cardiovascular: Regular rate and rhythm with a normal S1 and S2. No gallops, murmurs, or rubs. Normal PMI, no JVD. No pulse deficits. Respiratory: Lungs have equal breath sounds bilaterally, clear to auscultation and percussion. No rales, rhonchi or wheezes noted. No increased work of breathing, no retractions or nasal flaring. Abdomen/GI: Soft, non-tender, with normal bowel sounds. No distension or tympany. No guarding or rebound. No evidence of tenderness throughout. Back: No spinal tenderness. No costovertebral tenderness. Full range of motion. Skin: Warm, dry with normal turgor. Normal color with no rashes, no lesions, and no evidence of cellulitis. Neuro: Awake and alert, GCS 15, oriented to person, place, time, and situation. Cranial nerves II-XII grossly intact. Motor strength 5/5 in all extremities. Sensory grossly intact. Cerebellar exam normal. Normal gait. Psych: Awake, alert, with orientation to person, place and time. Behavior, mood, and affect are within normal limits. 18:22 Musculoskeletal/extremity: Extremities: grossly normal except: noted in the medial aspect of right wrist: swelling, tenderness, ROM: limited active range of motion due to pain, limited passive range of motion due to pain, Circulation is intact in all extremities. Sensation intact. Vital Signs: 18:53 BP 140 / 48; Pulse 78; Resp 18; Temp 97.1; Pulse Ox 100% ; Weight 124.74 kg; Height 5 kb3 ft. 4 in. (162.56 cm); Pain 7/10; 18:53 Body Mass Index 47.20 (124.74 kg, 162.56 cm) kb3 MDM: 18:22 Patient medically screened. snw 19:44 Data reviewed: vital signs, nurses notes. Data interpreted: Pulse oximetry: on room air snw is 100 %. Interpretation: normal. Counseling: I had a detailed discussion with the patient and/or guardian regarding: the historical points, exam findings, and any diagnostic results supporting the discharge/admit diagnosis, the presence of at least one elevated blood pressure reading (>120/80) during this emergency department visit, the need for outpatient follow up, for definitive care, to return to the emergency department if symptoms worsen or persist or if there are any questions or concerns that arise at home. Response to treatment: the patient's symptoms have mildly improved after treatment. Special discussion: I have referred the patient to see his PCP for further evaluation of high blood pressure. Based on the history and exam findings, there is no indication for further emergent testing or inpatient evaluation. I discussed with the patient/guardian the need to see the orthopedic surgeon for further evaluation of the symptoms. I discussed with the patient/guardian the need to see the primary care provider for further evaluation of the symptoms. 04/03 18:20 Order name: Splint - Wrist: velcro; Complete Time: 19:22 snw Administered Medications: 19:22 Drug: Ketorolac 30 mg Route: IM; Site: left ventrogluteal; kb3 19:51 Follow up: Response: No adverse reaction tw5 Disposition: 04/04 08:12 Co-signature as Attending Physician, Minh Norris MD I agree with the assessment and rashida plan of care. Disposition Summary: 04/03/22 19:43 Discharge Ordered Location: Home snw Condition: Stable snw Diagnosis - Pain in right wrist snw Followup: snw - With: Emergency Department - When: As needed - Reason: Worsening of condition Followup: snw - With: Private Physician - When: 2 - 3 days - Reason: Recheck today's complaints, Continuance of care, Re-evaluation by your physician Discharge Instructions: - Discharge Summary Sheet snw - Musculoskeletal Pain snw - How to Use Cold Therapy, Wakd-tj-Reob snw - Wrist Pain, Adult, [id number]-mz-Wdfh snw Forms: - Medication Reconciliation Form snw - Thank You Letter snw - Antibiotic Education snw - Prescription Opioid Use snw - Work release form snw Prescriptions: - Mobic 7.5 mg Oral Tablet - take 1 tablet by ORAL route once daily take with food; 20 tablet; Refills: 0, snw Product Selection Permitted Signatures: Minh Norris MD MD cha Waters, Shelly, ANIMAL CARE GIVER-C ANIMAL CARE GIVER-Csnw Shellie Deleon RN RN kb3 Sasha Zamora tw5 Corrections: (The following items were deleted from the chart) 04/03 18:55 18:54 Home Meds: "thyroid medication"; kb3 kb3
[2022-04-03 20:11] VITALS: BP 140/48; TEMP 97.1; O2SAT 100
== END 2022-04-03 19:51 | disposition home or self-care (01) ==
LOC: ER 18:07
DX: M25.531 Pain in right wrist (principal); Z88.5 Allergy status to narcotic agent; Z91.013 Allergy to seafood
CPT/HCPCS: 96372; 99283

== ENCOUNTER 2023-09-03 19:20 | Emergency (ER) | payer BC ==
--- OUTSIDE RECORDS SUMMARY | 2023-09-03 19:23 | XMS REPORT | Continuity of Care Document ---
Author Name Unknown Address [address] [facility] 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 Name Role Phone Jose Sadler MD Primary Care Physician + [phone] BARBARA CARLOS Attending Clinician Unavailable Barbara Butler Attending Clinician [phone] Unknown, Attending Attending Clinician Unavailab Cheo Ruiz Attending Clinician Unavailable Kendall LONDONO, Mariaelena Attending Clinician [phone] Iza BOYKIN, Madelaine Castro Attending Clinician Unavailab MARIAELENA Joya Attending Clinician Unavailable Doctor Unassigned, Tripp Attending Clinician U navailable Lab, Pcp Covid Attending Clinician Unavailable Lab, Adc Fam Pob I Attending Clinician Unavailab Sylvia Gilbert Attending Clinician [phone] SYLVIA RYAN Attending Clinician Unavailable Cheo Juarez Admitting Clinician Unavailable Physician, No Primary or Family Admitting Clinic samuel Unavailable Payers Payer Name Policy Type Policy Number Effective Date Expirati on Date Source [facility] [id number] 2017 00:00:00 Problems Condition Name Condition Details Condition Category Status Onset Date Resolution Date Last Treatment Date Treating Clinician Comments Source No known active problems No known active problems Disease [facility] Allergies, Adverse Reactions, Alerts Allergy Name Allergy Type Status Severity Reaction(s) Onset Date Inactive Date Treating Clinician Comments Source CODEINE DRUG INGREDI Active N/V 2021-05 00:00: 00 [facility] Codeine Propensi ty to adverse reaction s Active Nausea and/or Vomiting 2021-05 00:00: 00 [facility] NO KNOWN ALLERGIE S Drug Class Active [facility] Social History Social Habit Start Date Stop Date Quantity Comments Source Exposure to SARS-CoV-2 (event) Yes [facility] Tobacco use and exposure 2021-05-04 00:00:00 2021-05-04 00:00:00 Smokeless tobacco non-user [facility] Sex Ass[birth year] At 1965 00:00[birth year]00 1965 00:00:00 [facility] Smoking Status Start Date Stop Date Source Unknown if ever smoked [facility] Never smoked tobacco [facility] Medications Ordered Medication Name Filled Medication Name Start Date Stop Date Current Medication? Ordering Clinician Indication Dosage Frequency Signature (SIG) Comments Components Source guaiFENesin 400 mg tablet 05-04 00:00: 00 Yes [id number] 400mg Take 1 tablet by mouth every 4 (four) hours as needed for Cough. [facility] benzonatate 100 mg capsule 05-04 00:00: 00 Yes [id number] 200mg Take 2 capsules by mouth 2 (two) times daily as needed for Cough. [facility] codeine-gua ifenesin 10-100 mg/5 mL oral solution 05-04 00:00: 00 Yes 5mL Take 5 mL by mouth every 6 (six) hours as needed for Cough. Indication s: cough [facility] Vital Signs Vital Name Observation Time Observation Value Comments S kaden Systolic blood pressure 2022-04-20 15:41:00 113 mm[Hg] [facility] Diastolic blood pressure 2022-04-20 15:41:00 64 mm[Hg] [facility] Heart rate 2022-04-20 15:41:00 98 /min [facility] Body temperature 2022-04-20 15:41:00 37.11 [facility] Respiratory rate 2022-04-20 15:41:00 18 /min [facility] Body height 2022-04-20 15:41:00 162.6 cm [facility] Body weight 2022-04-20 15:41:00 129.275 kg [facility] BMI 2022-04-20 15:41:00 48.92 kg/m2 [facility] Oxygen saturation in Arterial blood by Pulse oximetry 2022-04-20 15:41:00 97 /min [facility] Systolic blood pressure 2021-05-04 15:12:00 133 mm[Hg] [facility] Diastolic blood pressure 2021-05-04 15:12:00 81 mm[Hg] [facility] Heart rate 2021-05-04 15:12:00 90 /min [facility] Body temperature 2021-05-04 15:12:00 36.61 [facility] Respiratory rate 2021-05-04 15:12:00 16 /min [facility] Body height 2021-05-04 15:12:00 162.6 cm [facility] Body weight 2021-05-04 15:12:00 127.971 kg [facility] BMI 2021-05-04 15:12:00 48.43 kg/m2 [facility] Oxygen saturation in Arterial blood by Pulse oximetry 2021-05-04 15:12:00 97 /min [facility] Procedures Procedure Date / Time Performed Performing Clinicia n Source POCT SARS-COV-2 ANTIGEN (BINAX NOW) 2022-04-20 16:02:00 Meaghan Mason [facility] POCT MOLECULAR STREP 2022-04-20 15:45:00 Davis, Latrice perea [facility] POCT MOLECULAR FLU 2021-05-04 15:22:00 [facility] 2021-03-03 05:01:00 Doctor Unassigned, Tripp [facility] Encounters Start Date/Time End Date/Time Encounter Type Admission Type Attending Clinicians Care Facility Care Department Encounter ID Source 2022-04-20 10:30:00 2022-04-20 10:42:41 Outpatient R BARBARA CARLOS [facility] [id number] [facility] 2022-04-20 10:30:00 2022-04-20 10:42:41 Urgent Care Barbara Carlos Unknown, Attending [facility] [id number] [id number] [id number] [facility] 2021-11-09 12:00:00 2021-11-09 12:00:00 Outpatient Cheo Saleh [facility] [id number] [facility] 2021-06-15 00:00:00 2021-06-15 00:00:00 Refill Kendall [facility] 1..840.114 350.1.13.10 [id number] [id number] [facility] 2021-05-05 00:00:00 2021-05-05 00:00:00 Letter (Out) Madelaine Couch [facility] [id number] 350.1.13.10 4.2.7.2.686 [id number] [facility] 2021-05-04 09:20:00 2021-05-04 09:59:46 Outpatient Inna ARGUETA MARIAELENA [facility] [id number] [facility] 2021-05-04 09:20:00 2021-05-04 09:40:00 [facility] [id number] 350.1.13.10 4.2.7.2.686 [id number] [facility] 2021-03-03 00:00:00 2021-03-03 00:00:00 Orders Only Doctor Unassigned, Tripp [facility] [id number] 350.1.13.10 4.2.7.2.686 [id number] [facility] 2020-09-30 12:00:00 2020-09-30 12:00:00 Outpatient Cheo Saleh [facility] [id number] [facility] 2020-07-14 00:00:00 2020-07-14 00:00:00 Letter (Out) Lab, Pcp On license of [facility] [id number] 350.1.13.10 4.2.7.2.686 [id number] 2020-07-14 00:00:00 2020-07-14 00:00:00 Letter (Out) Lab, Pcp On license of [facility] [id number] 350.1.13.10 4.2.7.2.686 [id number] [facility] 2020-07-11 14:24:35 2020-07-11 14:44:35 Laboratory Only Lab, [facility] Pob I [facility] [id number] 350.1.13.10 4.2.7.2.686 [id number] 2020-07-11 14:24:35 2020-07-11 14:44:35 Laboratory Only Lab, Formerly [facility] Pob I Sylvia Ryan [facility] [id number] 350.1.13.10 4.2.7.2.686 [id number] [facility] 2020-07-11 14:20:00 2020-07-11 14:20:00 Outpatient SYLVIA [facility]RI[facility]IAN [facility] [id number] [facility] 2019-09-25 12:00:00 2019-09-25 12:00:00 Outpatient Cheo Saleh [facility] [id number] [facility] Results Test Description Test Time Test Comments Results Result Co mments Source [facility] [id number] 15:53:00* Test Item Value Reference Range Interpretation Comme nts POCT Molecular Strep (test c ode = 62452-2) Negative Negative Lab Interpretation (test cod e = 86782-8) Normal [facility] MOLECULAR [id number] 15:33:58* Test Item Value Reference Range Interpretation Comme nts POCT Molecular FluA (test co de = 12024-0) Negative Negative POCT Molecular FluB (test co de = 54737-3) Negative Negative Lab Interpretation (test cod e = 43277-3) Normal [facility]
--- NOTE | 2023-09-03 20:17 | EDPHYS ---
Physician Documentation [facility] Name: Neris Cano Age: 58 yrs Sex: Female : 1965 Arrival Date: 09/03/2023 Time: 19:20 Bed IW5 Private MD: ED Physician Gino Glynn HPI: 09/03 00:15 This 58 yrs old Female presents to ER via Ambulatory with complaints of Leg Swelling. ms3 00:15 58-year-old female with past medical history of anxiety, hypothyroidism presents to the [facility] emergency department for left leg itching with erythema, warmth and tenderness that began on waking up. Patient denies fevers, chills, nausea, vomiting, shortness of breath.. Historical: - Allergies: 09/02 20:26 Codeine (Vomiting); km 20:26 SHELLFISH; km8 - PMHx: 20:26 Anxiety; Hypothyroidism; km8 - PSHx: 20:26 section; km8 - Immunization history:: Adult Immunizations up to date. - Infectious Disease History:: Denies. - Social history:: Smoking status: Patient denies any tobacco usage or history of. Patient uses alcohol, occasionally. Patient/guardian denies using street drugs. ROS: 09/03 00:15 Constitutional: Negative for fever, and chills. Neck: Negative for injury, pain, and ms3 swelling, Cardiovascular: Negative for chest pain, and palpitations. Respiratory: Negative for shortness of breath, cough, wheezing, and pleuritic chest pain, Abdomen/GI: Negative for abdominal pain, nausea, vomiting, diarrhea, and constipation, Skin: Positive for cellulitis, Exam: 00:15 Constitutional: This is a well developed, well nourished patient who is awake, alert, ms3 and in no acute distress. Head/Face: Normocephalic, atraumatic. Chest/axilla: Normal chest wall appearance and motion. Nontender with no deformity. Cardiovascular: Regular rate and rhythm with a normal S1 and S2. No gallops, murmurs, or rubs. Normal PMI, no JVD. No pulse deficits. Respiratory: Lungs have equal breath sounds bilaterally, clear to auscultation and percussion. No rales, rhonchi or wheezes noted. No increased work of breathing, no retractions or nasal flaring. Abdomen/GI: Soft, non-tender, with normal bowel sounds. No distension or tympany. No guarding or rebound. No evidence of tenderness throughout. 00:15 Skin: rash can be described as erythematous, Cellulitis, on the left leg, Vital Signs: 09/02 20:27 BP 118 / 67; Pulse 82; Resp 16; Temp 98.5(O); Pulse Ox 96% on R/A; Weight 127.01 kg km8 (R); Height 5 ft. 4 in. (R); Pain /10; 20:27 Body Mass Index 48.06 (127.01 kg, 162.56 cm) km 20:27 Pain Scale: Adult km8 [place] Coma Score: 20:26 Eye Response: spontaneous(4). Motor Response: obeys commands(6). Verbal Response: km8 oriented(5). Total: 15. MDM: 20:17 Patient medically screened. ms3 09/03 00:15 Differential diagnosis: Cellulitis. Data reviewed: vital signs, nurses notes, and as a ms3 result, I will discharge patient. I considered the following discharge prescriptions or medication management in the emergency department Maricel AMEZCUA. Counseling: I had a detailed discussion with the patient and/or guardian regarding the historical points, exam findings, and any diagnostic results supporting the discharge/admit diagnosis, the need for outpatient follow up, to return to the emergency department if symptoms worsen or persist or if there are any questions or concerns that arise at home. Special discussion: I discussed with the patient/guardian in detail that at this point there is no indication for admission to the hospital. It is understood, however, that if the symptoms persist or worsen the patient needs to return immediately for re-evaluation. ED course: Discussed physical exam findings with patient. Patient to follow-up with primary care physician in 2 to 3 days. Patient understands and agrees with plan. All questions were answered. Return precautions discussed include worsening symptoms, or any other concerns. Administered Medications: No medications were administered Disposition: 00:21 Chart complete. ms3 Disposition Summary: 09/03/23 20:17 Discharge Ordered Notes: Location: Home ms3 Condition: Stable ms3 Diagnosis - Cellulitis of left lower limb ms3 Discharge Instructions: - Discharge Summary Sheet ms3 - Cellulitis, Adult ms3 Forms: - Medication Reconciliation Form ms3 - Antibiotic Education ms3 - Prescription Opioid Use ms3 - Patient Portal Instructions ms3 - Leadership Thank You Letter ms3 Prescriptions: - Bactrim DS 800-160 mg Oral tablet - take 1 tablet ORAL route every 12 hours for 10 days; 14 tablet; Refills: 0, ms3 Product Selection Permitted Signatures: Gino Glynn DO DO ms3 Soo Marte RN RN km8
--- NOTE | 2023-09-03 20:28 | ER ---
Nurse's Notes [facility] Name: Neris Cano Age: 58 yrs Sex: Female : 1965 Arrival Date: 09/03/2023 Time: 19:20 Bed IW5 Private MD: Diagnosis: Cellulitis of left lower limb Presentation: 09/02 20:26 Chief complaint: Patient states: redness, itching, and warm to touch to left calf km8 noticed this AM; no fever at home;. Coronavirus screen: Client denies travel out of the [place] in the last 14 days. Ebola Screen: No symptoms or risks identified at this time. Initial Sepsis Screen: Does the patient meet any 2 criteria? No. Patient's initial sepsis screen is negative. Does the patient have a suspected source of infection? No. Patient's initial sepsis screen is negative. Risk Assessment: Do you want to hurt yourself or someone else? Patient reports no desire to harm self or others. Onset of symptoms was September 03, 2023. 20:26 Method Of Arrival: Ambulatory [facility] 20:26 Acuity: KIANA 4 8 20:26 Onset of symptoms was September 03, 2023. 8 Triage Assessment: 20:26 General: Appears in no apparent distress. comfortable, Behavior is calm, cooperative, km8 appropriate for age. Pain: Complains of pain in left calf Pain currently is 1 out of 10 on a pain scale. Pain began 1 day ago. EENT: No signs and/or symptoms were reported regarding the EENT system. Neuro: Level of Consciousness is awake, alert, obeys commands, Oriented to person, place, time, situation. Cardiovascular: Denies chest pain, shortness of breath, Patient's skin is warm and dry. Respiratory: Airway is patent Respiratory effort is even, unlabored, Respiratory pattern is regular, symmetrical. GI: No signs and/or symptoms were reported involving the gastrointestinal system. : No signs and/or symptoms were reported regarding the genitourinary system. Derm: Skin is intact, is healthy with good turgor, Skin is dry, Skin is red, Skin temperature is warm Wound noted left calf Wound is redness, itchy, warm to touch. Musculoskeletal: No signs and/or symptoms reported regarding the musculoskeletal system. Circulation, motion, and sensation intact. Range of motion: intact in all extremities. Historical: - Allergies: 20:26 Codeine (Vomiting); km8 20:26 SHELLFISH; km8 - PMHx: 20:26 Anxiety; Hypothyroidism; km8 - PSHx: 20:26 section; km8 - Immunization history:: Adult Immunizations up to date. - Infectious Disease History:: Denies. - Social history:: Smoking status: Patient denies any tobacco usage or history of. Patient uses alcohol, occasionally. Patient/guardian denies using street drugs. Screenin:[address] [facility] ED Fall Risk Assessment (Adult) History of falling in the last 3 months, km8 including since admission No falls in past 3 months (0 pts) Confusion or Disorientation No (0 pts) Intoxicated or Sedated No (0 pts) Impaired Gait No (0 pts) Mobility Assist Device Used No (0 pt) Altered Elimination No (0 pt) Score/Fall Risk Level 0 - 2 = Low Risk Oriented to surroundings, Maintained a safe environment, Educated pt \T\ family on fall prevention, incl call for assistance when getting out of bed, Assessed \T\ reinforced patient's understanding of fall precautions. Abuse screen: Denies threats or abuse. Denies injuries from another. Nutritional screening: No deficits noted. Tuberculosis screening: No symptoms or risk factors identified. Assessment: 20:26 Reassessment: see triage assessment/notes. km8 Vital Signs: 20:27 BP 118 / 67; Pulse 82; Resp 16; Temp 98.5(O); Pulse Ox 96% on R/A; Weight 127.01 kg km8 (R); Height 5 ft. 4 in. (R); Pain 1/10; 20:27 Body Mass Index 48.06 (127.01 kg, 162.56 cm) km8 20:27 Pain Scale: Adult km8 [place] Coma Score: 20:26 Eye Response: spontaneous(4). Motor Response: obeys commands(6). Verbal Response: km8 oriented(5). Total: 15. ED Course: 19:21 Patient arrived in ED. rg4 19:45 Gino Glynn DO is Attending Physician. ms3 20:26 Arm band placed on right wrist. km8 20:26 Patient has correct armband on for positive identification. Provided Education on: d/c km8 teaching. 20:26 No provider procedures requiring assistance completed. Patient did not have IV access km8 during this emergency room visit. 21:32 Triage completed. km8 Administered Medications: No medications were administered Medication: 20:26 VIS not applicable for this client. km8 Outcome: 20:17 Discharge ordered by . ms3 20:27 Discharged to home ambulatory, km8 20:27 Condition: good 20:27 Discharge instructions given to patient, Instructed on discharge instructions, follow up and referral plans. medication usage, Demonstrated understanding of instructions, follow-up care, medications, Prescriptions given X 1, 20:28 Patient left the ED. km8 Signatures: Zoila Clark rg4 Gino Glynn DO DO ms3 Soo Marte, RN RN km8
[2023-09-03 20:58] VITALS: BP 118/67; TEMP 98.5; O2SAT 96
== END 2023-09-03 20:28 | disposition home or self-care (01) ==
LOC: ER 19:20
DX: L03.116 Cellulitis of left lower limb (principal); Z88.5 Allergy status to narcotic agent; Z91.013 Allergy to seafood
CPT/HCPCS: 99283

== ENCOUNTER 2023-11-20 20:10 | Emergency (ER) | payer BC ==
--- OUTSIDE RECORDS SUMMARY | 2023-11-20 20:12 | XMS REPORT | Continuity of Care Document ---
Author Name Unknown Address [address] [place] [address] [facility] thconnect Address [address] [facility] [facility] [place] [address] Care Team Providers Care Group Chief Operator Name Role Phone Jose Sadler MD Primary Care Physician + [phone] Cheo Juarez Attending Clinician Unavailable BARBARA CARLOS Attending Clinician Unavailable Barbara Butler Attending Clinician [phone] Unknown, Attending Attending Clinician UnavailMariaelena Cardona MD Attending Clinician [phone] Madelaine Couch RN Attending Clinician UnavailMARIAELENA Cardona Attending Clinician Unavailable Doctor Unassigned, [place] Attending Clinician U navailable Lab, Pcp Covid Attending Clinician Unavailable Lab, Adc Fam Pob I Attending Clinician UnavailSylvia Cordova Attending Clinician [phone] SYLVIA RYAN Attending Clinician Unavailable Cheo Juarez Admitting Clinician Unavailable Physician, No Primary or Family Admitting Clinic samuel Unavailable Payers Payer Name Policy Type Policy Number Effective Date Expirati on Date Source [facility] [id number] 2017 00:00:00 Problems Condition Name Condition Details Condition Category Status Onset Date Resolution Date Last Treatment Date Treating Clinician Comments Source No known active problems No known active problems Disease [facility] Allergies, Adverse Reactions, Alerts Allergy Name Allergy Type Status Severity Reaction(s) Onset Date Inactive Date Treating Clinician Comments Source CODEINE DRUG INGREDI Active N/V 2021-05 00:00: 00 [facility] Codeine Propensi ty to adverse reaction s Active Nausea and/or Vomiting 2021-05 00:00: 00 [facility] NO KNOWN ALLERGIE S Drug Class Active [facility] Social History Social Habit Start Date Stop Date Quantity Comments Source Exposure to SARS-CoV-2 (event) Yes [facility] Tobacco use and exposure 2021-05-04 00:00:00 2021-05-04 00:00:00 Smokeless tobacco non-user [facility] Sex Ass[birth year] At 1965 00:00:00 1965 00:00:00 [facility] Smoking Status Start Date Stop Date Source Unknown if ever smoked [facility] Never smoked tobacco [facility] Medications Ordered Medication Name Filled Medication Name Start Date Stop Date Current Medication? Ordering Clinician Indication Dosage Frequency Signature (SIG) Comments Components Source guaiFENesin 400 mg tablet 05-04 00:00: 00 Yes [id number] 400mg Take 1 tablet by mouth every 4 (four) hours as needed for Cough. [facility] benzonatate 100 mg capsule 05-04 00:00: 00 Yes [id number] 200mg Take 2 capsules by mouth 2 (two) times daily as needed for Cough. [facility] codeine-gua ifenesin 10-100 mg/5 mL oral solution 05-04 00:00: 00 Yes 5mL Take 5 mL by mouth every 6 (six) hours as needed for Cough. Indication s: cough [facility] Vital Signs Vital Name Observation Time Observation Value Comments S our Systolic blood pressure 2022-04-20 15:41:00 113 mm[Hg] [place] [facility] Diastolic blood pressure 2022-04-20 15:41:00 64 mm[Hg] [facility] Heart rate 2022-04-20 15:41:00 98 /min [facility] Body temperature 2022-04-20 15:41:00 37.11 Marian [facility] Respiratory rate 2022-04-20 15:41:00 18 /min [facility] Body height 2022-04-20 15:41:00 162.6 cm [facility] Body weight 2022-04-20 15:41:00 129.275 kg [facility] BMI 2022-04-20 15:41:00 48.92 kg/m2 [facility] Oxygen saturation in Arterial blood by Pulse oximetry 2022-04-20 15:41:00 97 /min [facility] Systolic blood pressure 2021-05-04 15:12:00 133 mm[Hg] [facility] Diastolic blood pressure 2021-05-04 15:12:00 81 mm[Hg] [facility] Heart rate 2021-05-04 15:12:00 90 /min [facility] Body temperature 2021-05-04 15:12:00 36.61 Marian [facility] Respiratory rate 2021-05-04 15:12:00 16 /min [facility] Body height 2021-05-04 15:12:00 162.6 cm [facility] Body weight 2021-05-04 15:12:00 127.971 kg [facility] BMI 2021-05-04 15:12:00 48.43 kg/m2 [facility] Oxygen saturation in Arterial blood by Pulse oximetry 2021-05-04 15:12:00 97 /min [facility] Procedures Procedure Date / Time Performed Performing Clinicia n Source POCT SARS-COV-2 ANTIGEN (BINAX NOW) 2022-04-20 16:02:00 Meaghan Mason [facility] POCT MOLECULAR STREP 2022-04-20 15:45:00 Unknown, Atte brit [facility] POCT MOLECULAR FLU 2021-05-04 15:22:00 [facility] 2021-03-03 05:01:00 Doctor Unassigned, [place] [facility] Encounters Start Date/Time End Date/Time Encounter Type Admission Type Attending Clinicians Care Facility Care Department Encounter ID Source 2023-09-09 08:00:00 2023-09-09 08:00:00 Outpatient Cheo Saleh [facility] [id number] [facility] 2022-04-20 10:30:00 2022-04-20 10:42:41 Outpatient BARBARA SALAZAR [facility] [id number] [facility] 2022-04-20 10:30:00 2022-04-20 10:42:41 Urgent Care Barbara Carlos Unknown, Attending [facility] 1..840.114 350.1.13.10 [id number] [id number] [facility] 2021-11-09 12:00:00 2021-11-09 12:00:00 Outpatient Cheo Saleh [facility] [id number] [facility] 2021-06-15 00:00:00 2021-06-15 00:00:00 Mariaelena Beavers [facility] [id number] [id number] [id number] [facility] 2021-05-05 00:00:00 2021-05-05 00:00:00 Letter (Out) Madelaine Couch [facility] 1..840.114 350.1.13.10 4.2.7.2.686 [id number] [facility] 2021-05-04 09:20:00 2021-05-04 09:59:46 Outpatient MARIAELENA ALBARRAN [facility] [id number] [facility] 2021-05-04 09:20:2021-05-04 09:40:00 Urgent Care Mariaelena Argueta [facility] 1..114 350.1.13.10 4.2.7.2.686 [id number] [facility] 2021-03-03 00:00:00 2021-03-03 00:00:00 Orders Only Doctor Unassigned, [place] [facility] 1.0.114 350.1.13.10 4.2.7.2.686 [id number] [facility] 2020-09-30 12:00:00 2020-09-30 12:00:00 Outpatient ROHITH Ramosmarcos Cheo [facility] [id number] [facility] 2020-07-14 00:00:00 2020-07-14 00:00:00 Letter (Out) Lab, Pcp [facility] 1..114 350.1.13.10 4.2.7.2.686 [id number] [facility] 2020-07-14 00:00:00 2020-07-14 00:00:00 Letter (Out) Lab, Pcp [facility] ..114 350.1.13.10 4.2.7.2.686 [id number] 2020-07-11 14:24:35 2020-07-11 14:44:35 Laboratory Only Lab, Adc Fam Pob I Sylvia Ryan [facility] ..114 350.1.13.10 4.2.7.2.686 [id number] [facility] 2020-07-11 14:24:35 2020-07-11 14:44:35 Laboratory Only Lab, Adc Fam Pob I [facility] ..114 350.1.13.10 4.2.7.2.686 [id number] 2020-07-11 14:20:00 2020-07-11 14:20:00 Outpatient Inna CONNOR SYLVIA [facility] [id number] [facility] 2019-09-25 12:00:00 2019-09-25 12:00:00 Outpatient Cheo Saleh [facility] [id number] [facility] Results Test Description Test Time Test Comments Results Result Co mments Source [facility] [id number] 15:53:00* Test Item Value Reference Range Interpretation Comme nts POCT Molecular Strep (test c ode = 00599-7) Negative Negative Lab Interpretation (test cod e = 97100-7) Normal [facility] MOLECULAR [id number] 15:33:58* Test Item Value Reference Range Interpretation Comme nts POCT Molecular FluA (test co de = 61399-3) Negative Negative POCT Molecular FluB (test co de = 99263-5) Negative Negative Lab Interpretation (test cod e = 27720-3) Normal [facility]
[2023-11-20] MEDS ORDERED: IBUPROFEN 400 MG TAB ONE (21:13)
[2023-11-20] MEDS ORDERED: ACETAMINOPHEN 500 MG TAB ONE (21:13)
--- NOTE | 2023-11-20 22:14 | RAD REPORT ---
EXAM DESCRIPTION: RAD - Ankle Left 3 View - 11/20/2023 10:06 pm CLINICAL HISTORY: PAIN COMPARISON: No comparisons FINDINGS/IMPRESSION: No acute fracture. No malalignment. Calcaneal spurs.
--- NOTE | 2023-11-20 22:16 | RAD REPORT ---
EXAM DESCRIPTION: RAD - Foot Left 3 View - 11/20/2023 10:06 pm CLINICAL HISTORY: PAIN COMPARISON: No comparisons FINDINGS/IMPRESSION: No acute fracture. No malalignment. Enthesophyte at the proximal aspect of the fifth metatarsal. Calcaneal spurs.
--- NOTE | 2023-11-20 22:29 | ER ---
Nurse's Notes [facility] Name: Neris Cano Age: 58 yrs Sex: Female : 1965 Arrival Date: 11/20/2023 Time: 20:10 Bed 11 Private MD: Ariane Banks Diagnosis: Pain in left ankle and joints of left foot Presentation: 11/19 20:42 Chief complaint: Patient states: Patient c/o left foot pain that radiates into ankle x tl4 1.5 days. Pt denies injury. Coronavirus screen: At this time, the client does not indicate any symptoms associated with coronavirus-19. Ebola Screen: No symptoms or risks identified at this time. Initial Sepsis Screen: Does the patient meet any 2 criteria? No. Patient's initial sepsis screen is negative. Does the patient have a suspected source of infection? No. Patient's initial sepsis screen is negative. Risk Assessment: Do you want to hurt yourself or someone else? Patient reports no desire to harm self or others. Onset of symptoms was November 18, 2023. 20:42 Method Of Arrival: Ambulatory tl4 20:42 Acuity: KIANA 4 tl4 Triage Assessment: 20:44 General: Appears in no apparent distress. Behavior is calm, cooperative. Pain: tl4 Complains of pain in left foot. EENT: No signs and/or symptoms were reported regarding the EENT system. Neuro: Level of Consciousness is awake, alert, obeys commands, Oriented to person, place, time, situation. Cardiovascular: Capillary refill < 3 seconds Patient's skin is warm and dry. Respiratory: Airway is patent Respiratory effort is even, unlabored, Respiratory pattern is regular, symmetrical. GI: No signs and/or symptoms were reported involving the gastrointestinal system. : No signs and/or symptoms were reported regarding the genitourinary system. Derm: No signs and/or symptoms reported regarding the dermatologic system. Musculoskeletal: Reports pain in left foot. Historical: - Allergies: 20:44 Codeine (Vomiting); tl4 20:44 SHELLFISH; tl4 - PMHx: 20:44 Anxiety; Hypothyroidism; tl4 - PSHx: 20:44 section; tl4 - Immunization history:: Adult Immunizations unknown. - Infectious Disease History:: Denies. - Social history:: Smoking status: Patient denies any tobacco usage or history of. Screenin:48 [facility] ED Fall Risk Assessment (Adult) History of falling in the last 3 months, mb9 including since admission No falls in past 3 months (0 pts) Confusion or Disorientation No (0 pts) Intoxicated or Sedated No (0 pts) Impaired Gait No (0 pts) Mobility Assist Device Used No (0 pt) Altered Elimination No (0 pt) Score/Fall Risk Level 0 - 2 = Low Risk Oriented to surroundings, Maintained a safe environment, Educated pt \T\ family on fall prevention, incl call for assistance when getting out of bed. Abuse screen: Denies threats or abuse. Nutritional screening: No deficits noted. Tuberculosis screening: No symptoms or risk factors identified. Assessment: 20:49 General: Appears in no apparent distress. Behavior is calm, cooperative. Pain: mb9 Complains of pain in left foot. Neuro: Harper Agitation-Sedation Scale (RASS): 0 - Alert and Calm Level of Consciousness is awake, alert, obeys commands, Oriented to person, place, time, situation, Appropriate for age. Cardiovascular: Patient's skin is warm and dry. Respiratory: Airway is patent Respiratory effort is even, unlabored, Respiratory pattern is regular, symmetrical. GI: No signs and/or symptoms were reported involving the gastrointestinal system. : No signs and/or symptoms were reported regarding the genitourinary system. EENT: No signs and/or symptoms were reported regarding the EENT system. Derm: Skin is pink, warm \T\ dry. Musculoskeletal: Range of motion: intact in all extremities. 22:51 Reassessment: Patient appears in no apparent distress at this time. Patient and/or jb4 family updated on plan of care and expected duration. Pain level reassessed. Patient is alert, oriented x 3, equal unlabored respirations, skin warm/dry/pink. Vital Signs: 20:42 BP 114 / 61; Pulse 83; Resp 16; Temp 97.5; Pulse Ox 96% on R/A; Weight 127.01 kg; tl4 Height 5 ft. 4 in. ; Pain 7/10; 20:42 Body Mass Index 48.06 (127.01 kg, 162.56 cm) tl4 20:42 Pain Scale: Adult tl4 ED Course: 20:11 Patient arrived in ED. rg4 20:12 Ariane Banks DO is Private Physician. rg4 20:20 Minh Palm PA is PHCP. cp 20:20 Santosh Mai MD is Attending Physician. cp 20:44 Triage completed. tl4 20:45 Arm band placed on right wrist. tl4 20:48 Pricila Galvez, RN is Primary Nurse. mb9 20:48 Bed in low position. Call light in reach. Side rails up X 1. Provided Education on: mb9 press call light if needing anything. Client placed on continuous cardiac and pulse oximetry monitoring. NIBP monitoring applied. 20:49 No provider procedures requiring assistance completed. mb9 21:55 Patient did not have IV access during this emergency room visit. mb9 22:08 XRAY Foot LEFT 3 View In Process Unspecified. EDMS 22:08 XRAY Ankle LEFT 3 view In Process Unspecified. EDMS 22:28 Poncho Palomo MD is Referral Physician. cp Administered Medications: 21:16 Drug: Ibuprofen PO 800 mg PO once Route: PO; mb9 21:55 Follow up: Response: No adverse reaction mb9 21:16 Drug: Acetaminophen PO 1000 mg PO once Route: PO; mb9 21:55 Follow up: Response: No adverse reaction mb9 Medication: 20:49 VIS not applicable for this client. mb9 Outcome: 22:29 Discharge ordered by MD. cp 22:51 Discharged to home ambulatory, with family, jb4 22:51 Condition: stable 22:51 Discharge instructions given to patient, Instructed on discharge instructions, follow up and referral plans. medication usage, Demonstrated understanding of instructions, follow-up care, medications, Prescriptions given X 1, 22:52 Patient left the ED. jb4 Signatures: Dispatcher [employer] EDNY Minh Palm PA PA cp Garcia, Rubi rg4 Ap Hale RN RN jb4 Pricila Galvez RN RN mb9 Pierre Khan RN RN tl4
--- NOTE | 2023-11-20 22:29 | EDPHYS ---
Physician Documentation [facility] Name: Neris Cano Age: 58 yrs Sex: Female : 1965 Arrival Date: 11/20/2023 Time: 20:10 Bed 11 Private MD: Ariane Banks ED Physician Santosh Mai HPI: 11/19 21:20 This 58 yrs old Female presents to ER via Ambulatory with complaints of Foot Pain. cp 21:20 The patient presents with pain, that is acute. The complaints affect the left ankle and cp left foot. 21:20 Context: resulted from an unknown cause, the patient can fully bear weight, the patient cp is able to ambulate, with mild difficulty, Problem is a result from a previous injury: No. Onset: The symptoms/episode began/occurred 2 day(s) ago. Associated signs and symptoms: The patient has no apparent associated signs or symptoms. 21:20 Modifying factors: the symptoms are aggravated by weight bearing. Treatment prior to cp arrival includes: no previous treatment. Historical: - Allergies: 20:44 Codeine (Vomiting); tl4 20:44 SHELLFISH; tl4 - PMHx: 20:44 Anxiety; Hypothyroidism; tl4 - PSHx: 20:44 section; tl4 - Immunization history:: Adult Immunizations unknown. - Infectious Disease History:: Denies. - Social history:: Smoking status: Patient denies any tobacco usage or history of. ROS: 21:25 Constitutional: Negative for body aches, chills, fever, cp 21:25 MS/extremity: Positive for pain, of the left foot and left foot, Negative for decreased range of motion, deformity, paresthesias, 21:25 Constitutional: HX per HPI cp 21:25 Neck: Negative for pain with movement, pain at rest, 21:25 Back: Negative for pain at rest, pain with movement, 21:25 Neuro: Negative for numbness, 21:25 All other systems are negative, Exam: 21:30 Constitutional: The patient appears in no acute distress, alert, awake, non-toxic, well cp developed, well nourished, obese, 21:30 Head/Face: Normocephalic, atraumatic. cp 21:30 Chest/axilla: Inspection: normal, 21:30 Cardiovascular: Rate: normal, Pulses: Pulses are 2+ in left dorsalis pedis artery. Edema: is not appreciated, 21:30 Respiratory: the patient does not display signs of respiratory distress, Respirations: normal, no use of accessory muscles, no retractions, 21:30 Back: pain, no acute change, 21:30 Musculoskeletal/extremity: Extremities: noted in the left ankle and left foot: pain, tenderness, mild swelling, There is no evidence of decreased ROM, deformity, ROM: limited passive range of motion due to pain, in the left ankle, Sensation intact. Vital Signs: 20:42 BP 114 / 61; Pulse 83; Resp 16; Temp 97.5; Pulse Ox 96% on R/A; Weight 127.01 kg; tl4 Height 5 ft. 4 in. ; Pain 7/10; 20:42 Body Mass Index 48.06 (127.01 kg, 162.56 cm) tl4 20:42 Pain Scale: Adult tl4 MDM: 20:48 Patient medically screened. 21:30 Differential diagnosis: closed fracture, sprain, strain, dislocation. 22:28 Data reviewed: vital signs, nurses notes, radiologic studies, plain films. 22:28 I considered the following discharge prescriptions or medication management in the emergency department Medications were administered in the Emergency Department. See MAR. Independent interpretation of the following test(s) in the Emergency Department X-Ray: My interpretation is images of left ankle and left foot negative for fracture. Counseling: I had a detailed discussion with the patient and/or guardian regarding the historical points, exam findings, and any diagnostic results supporting the discharge/admit diagnosis, radiology results, to return to the emergency department if symptoms worsen or persist or if there are any questions or concerns that arise at home. Response to treatment: the patient's symptoms have mildly improved after treatment. 11/19 21:13 Order name: XRAY Foot LEFT 3 View; Complete Time: 22:26 11/19 22:27 Interpretation: Reviewed report. 11/19 21:13 Order name: XRAY Ankle LEFT 3 view; Complete Time: 22:26 11/19 22:27 Interpretation: Report reviewed. 11/19 22:26 Order name: Johnny wrap-joint; Complete Time: 22:36 Administered Medications: 21:16 Drug: Ibuprofen PO 800 mg PO once Route: PO; 9 21:55 Follow up: Response: No adverse reaction mb9 21:16 Drug: Acetaminophen PO 1000 mg PO once Route: PO; mb9 21:55 Follow up: Response: No adverse reaction mb9 Disposition: 11/20 01:04 Co-signature as Attending Physician, Santosh Mai MD I reviewed the patient's care rt provided by the Advanced Practice Provider and agree with the diagnosis and treatment plan. Disposition Summary: 11/20/23 22:29 Discharge Ordered Notes: Location: Home cp Problem: new cp Symptoms: have improved cp Condition: Stable cp Diagnosis - Pain in left ankle and joints of left foot cp Followup: cp - With: Poncho Palomo MD - When: 1 week - Reason: pain continues Discharge Instructions: - Discharge Summary Sheet cp - Elastic Bandage and RICE Therapy cp - Arthritis cp - Ankle Pain cp - Foot Pain cp Forms: - Medication Reconciliation Form cp - Antibiotic Education cp - Prescription Opioid Use cp - Patient Portal Instructions cp - Leadership Thank You Letter cp Prescriptions: - Ibuprofen 800 mg Oral Tablet - take 1 tablet ORAL route every 8 hours As needed take with food; 30 tablet; cp Refills: 0, Product Selection Permitted Signatures: Dispatcher [employer] EDMinh Lowery PA PA cp Pricila Galvez RN RN mb9 Santosh Mai MD MD rt LogPierre calvo RN RN tl4 Corrections: (The following items were deleted from the chart) 22:47 22:05 MS/extremity: Positive for pain, of the left foot and left foot, Negative for cp decreased range of motion, deformity, paresthesias, cp 22:47 22:05 Constitutional: Negative for body aches, chills, fever, cp cp
[2023-11-24 14:55] VITALS: BP 114/61; TEMP 97.5; O2SAT 96
== END 2023-11-20 22:52 | disposition home or self-care (01) ==
LOC: ER 20:10
DX: M25.572 Pain in left ankle and joints of left foot (principal); E03.9 Hypothyroidism, unspecified; Z88.5 Allergy status to narcotic agent; Z91.013 Allergy to seafood
CPT/HCPCS: 99283

== ENCOUNTER 2024-01-24 12:54 | Emergency (ER) | payer BC ==
--- OUTSIDE RECORDS SUMMARY | 2024-01-24 12:57 | XMS REPORT | Continuity of Care Document ---
Author Name Unknown Address [address] [place] [address] [facility] thconnect Address [address] [place] [address] Care Team Providers Care Interlocking Installer Name Role Phone Jose Sadler MD Primary Care Physician +- [phone] Cheo Juarez Attending Clinician Unavailable BARBARA CARLOS Attending Clinician Unavailable Barbara Butler Attending Clinician [phone] Unknown, Attending Attending Clinician UnavailMariaelena Cardona MD Attending Clinician [phone] Madelaine Couch RN Attending Clinician UnavailMARIAELENA Cardona Attending Clinician Unavailable Doctor Unassigned, [place] Attending Clinician U navailable Lab, Pcp Covid Attending Clinician Unavailable Lab, Adc Fam Pob I Attending Clinician UnavailSylvia Cordova Attending Clinician [phone] SYLVIA RYAN Attending Clinician Unavailable Cheo Juarez Admitting Clinician Unavailable Physician, No Primary or Family Admitting Clinic samuel Unavailable Payers Payer Name Policy Type Policy Number Effective Date Expirati on Date Source [facility] [id number] 2017 00:00:00 Problems Condition Name Condition Details Condition Category Status Onset Date Resolution Date Last Treatment Date Treating Clinician Comments Source No known active problems No known active problems Disease [facility] Allergies, Adverse Reactions, Alerts Allergy Name Allergy Type Status Severity Reaction(s) Onset Date Inactive Date Treating Clinician Comments Source CODEINE DRUG INGREDI Active N/V 2021-05 00:00: 00 [facility] Codeine Propensi ty to adverse reaction s Active Nausea and/or Vomiting 2021-05 00:00: 00 [facility] NO KNOWN ALLERGIE S Drug Class Active [facility] Social History Social Habit Start Date Stop Date Quantity Comments Source Exposure to SARS-CoV-2 (event) Yes [facility] Tobacco use and exposure 2021-05-04 00:00:00 2021-05-04 00:00:00 Smokeless tobacco non-user [facility] Sex Ass[birth year] At 1965 00:00:00 1965 00:00:00 [facility] Smoking Status Start Date Stop Date Source Unknown if ever smoked Unive [facility] Never smoked tobacco [facility] Medications Ordered Medication Name Filled Medication Name Start Date Stop Date Current Medication? Ordering Clinician Indication Dosage Frequency Signature (SIG) Comments Components Source guaiFENesin 400 mg tablet 05-04 00:00: 00 Yes [id number] 400mg Take 1 tablet by mouth every 4 (four) hours as needed for Cough. [facility] benzonatate 100 mg capsule 05-04 00:00: 00 Yes [id number] 200mg Take 2 capsules by mouth 2 (two) times daily as needed for Cough. [facility] codeine-gua ifenesin 10-100 mg/5 mL oral solution 05-04 00:00: 00 Yes 5mL Take 5 mL by mouth every 6 (six) hours as needed for Cough. Indication s: cough [facility] Vital Signs Vital Name Observation Time Observation Value Comments S kadenlisa Systolic blood pressure 2022-04-20 15:41:00 113 mm[Hg] [facility] Diastolic blood pressure 2022-04-20 15:41:00 64 mm[Hg] [facility] Heart rate 2022-04-20 15:41:00 98 /min Unive [facility] Body temperature 2022-04-20 15:41:00 37.11 Marian [facility] Respiratory rate 2022-04-20 15:41:00 18 /min [facility] Body height 2022-04-20 15:41:00 162.6 cm [facility] Body weight 2022-04-20 15:41:00 129.275 kg [facility] BMI 2022-04-20 15:41:00 48.92 kg/m2 [facility] Oxygen saturation in Arterial blood by Pulse oximetry 2022-04-20 15:41:00 97 /min [facility] Systolic blood pressure 2021-05-04 15:12:00 133 mm[Hg] [facility] Diastolic blood pressure 2021-05-04 15:12:00 81 mm[Hg] [facility] Heart rate 2021-05-04 15:12:00 90 /min [facility] Body temperature 2021-05-04 15:12:00 36.61 Marian [facility] Respiratory rate 2021-05-04 15:12:00 16 /min [facility] Body height 2021-05-04 15:12:00 162.6 cm [facility] Body weight 2021-05-04 15:12:00 127.971 kg [facility] BMI 2021-05-04 15:12:00 48.43 kg/m2 [facility] Oxygen saturation in Arterial blood by Pulse oximetry 2021-05-04 15:12:00 97 /min [facility] Procedures Procedure Date / Time Performed Performing Clinicia n Source POCT SARS-COV-2 ANTIGEN (BINAX NOW) 2022-04-20 16:02:00 Meaghan Mason [facility] POCT MOLECULAR STREP 2022-04-20 15:45:00 Unknown, Latrice perea [facility] POCT MOLECULAR FLU 2021-05-04 15:22:00 [facility] 2021-03-03 05:01:00 Doctor Unassigned, [place] [facility] Encounters Start Date/Time End Date/Time Encounter Type Admission Type Attending [facility] Care Facility Care Department Encounter ID Source 2023-09-09 08:00:00 2023-09-09 08:00:00 Outpatient Cheo Saleh [facility] [id number] [facility] 2022-04-20 10:30:00 2022-04-20 10:42:41 Outpatient R BARBARA CARLOS [facility] [id number] [facility] 2022-04-20 10:30:00 2022-04-20 10:42:41 Urgent Care Barbara Carlos Unknown, Attending [facility] [id number] [id number] [id number] [id number] [facility] 2021-11-09 12:00:00 2021-11-09 12:00:00 Outpatient Cheo Saleh [facility] [id number] [facility] 2021-06-15 00:00:00 2021-06-15 00:00:00 Refill Kendall [facility] [id number] 350.1.13.10 [id number] [id number] [facility] 2021-05-05 00:00:00 2021-05-05 00:00:00 Letter (Out) Madelaine Couch [facility] 1..840.114 350.1.13.10 4.2.7.2.686 [id number] [facility] 2021-05-04 09:20:00 2021-05-04 09:59:46 Outpatient R MARIAELENA ARGUETA [facility] [id number] [facility] 2021-05-04 09:20:00 2021-05-04 09:40:00 Urgent Care Kendall [facility] 1.840.114 350.1.13.10 4.2.7.2.686 [id number] [facility] 2021-03-03 00:00:00 2021-03-03 00:00:00 Orders Only Doctor Unassigned, [place] [facility] 1.840.114 350.1.13.10 4.2.7.2.686 [id number] [facility] 2020-09-30 12:00:00 2020-09-30 12:00:00 Outpatient Cheo Saleh [facility]ED [id number] [facility] 2020-07-14 00:00:00 2020-07-14 00:00:00 Letter (Out) Lab, Pcp [facility] [id number] 350.1.13.10 4.2.7.2.686 [id number] 2020-07-14 00:00:00 2020-07-14 00:00:00 Letter (Out) Lab, Pcp [facility] [id number] [id number] 4.2.7.2.686 [id number] [facility] 2020-07-11 14:24:35 2020-07-11 14:44:35 Laboratory Only Lab, Adc Fam Pob I Sylvia Ryan [facility] [id number] [id number] [id number] [id number] [facility] 2020-07-11 14:24:35 2020-07-11 14:44:35 Laboratory Only Lab, Adc Fam Pob I [facility] [id number] 350.1.13.10 [id number] [id number] 2020-07-11 14:20:00 2020-07-11 14:20:00 Outpatient SYLVIA CHRISTIAN [facility] [id number] [facility] 2019-09-25 12:00:00 2019-09-25 12:00:00 Outpatient Cheo Saleh [facility] [id number] [facility] Results Test Description Test Time Test Comments Results Result Co mments Source [facility] MOLECULAR [id number] 15:53:00* Test Item Value Reference Range Interpretation Comme nts POCT Molecular Strep (test c ode = 02047-6) Negative Negative Lab Interpretation (test cod e = 50138-3) Normal [facility] MOLECULAR [id number] 15:33:58* Test Item Value Reference Range Interpretation Comme nts POCT Molecular FluA (test co de = 32595-2) Negative Negative POCT Molecular FluB (test co de = 81312-7) Negative Negative Lab Interpretation (test cod e = 40935-4) Normal [facility]
[2024-01-24] MEDS ORDERED: dexAMETHasone 10 MG/ML VIAL ONE (13:19)
--- NOTE | 2024-01-24 14:21 | RAD REPORT ---
EXAM: C Spine Wo Con HISTORY: [facility] MAIN PAIN Bed Name: IW3 COMPARISON: 07/11/2020 TECHNIQUE: Multiple contiguous axial images were obtained in a CT of the cervical spine without contr ast. Sagittal and coronal reformats were performed. One or more of the following dose reduction techniques were used: Automated exposure control, adjustment of the mA and kV according to patient si ze, and iterative reconstruction. Unless otherwise specified, incidental findings do not require dedicated imaging follow-up. FINDINGS: The vertebral bodies and intervertebral discs demonstrate normal height and alignment without fractur e or subluxation. Multilevel mild to moderate degenerative changes of the C1-2 articulation, as well as facet and uncovertebral joints. These contribute to mild to moderate degrees of neural forami nal narrowing generally worse on the left, most pronounced at C4-5, without to moderate foraminal stenosis. No prevertebral soft tissue swelling is seen. The posterior facets are well aligned. Normal alignment of the skull base with the cervical spine is seen. The lung apices are unremarkable. Marginally calcified ovoid right thyroid 1.9 cm nodule is stable appearance, no only evaluated The cervical soft tissues are otherwise unremarkable. IMPRESSION: No evidence of acute osseous abnormality of the cervical spine. Degenerative changes as above. Grossly stable partially calcified ovoid 1.9 cm right thyroid nodule, not well evaluated on CT. Recommendations for f/u of Incidental Thyroid Nodules (ITN) found on CT, MR, NM and Extrathyroidal US are based upon the ACR white paper and Morley 3-tiered system for managing ITNs: 1.Further Evaluation by Thyroid US recommended for: -Solitary ITN with high risk imaging features (locally invasive nodule or suspicious lymph nodes) -Solitary ITN of any size in pediatric pts. <= 18 years of age -Solitary ITN >= 1 cm in axial plane in pts. between 18 and 35 years of age -Solitary ITN >= 1.5 cm in axial plane in pts >= 35 years of age -Heterogeneous enlarged thyroid gland -ITN avid on FDG-PET or other nuclear medicine (MIBI and octreotide) scans. FNA biopsy is also recommended for PET avid nodules. 2.No f/u imaging is recommended for ITNs not meeting the above criteria. 3.For multiple thyroid nodules, the above recommendations for solitary ITN are to be applied to the largest nodule. 4.No US or f/u recommended for ITNs without high risk features in pts. with limited life expectancy or significant co-morbidities, unless clinically warranted. 5.These recommendations do not apply to pts. w/ increased risk for thyroid cancer or pts. with symptomatic thyroid disease. Reference: J Am Justa Radiol. 2015 Jun;12(2): 143-50
--- NOTE | 2024-01-24 14:38 | EDPHYS ---
Physician Documentation [facility] Name: Neris Cano Age: 58 yrs Sex: Female : 1965 Arrival Date: 01/24/2024 Time: 12:54 Bed 11 Private MD: ED Physician Kyaw Monzon HPI: 01/23 13:14 This 58 yrs old Female presents to ER via Ambulatory with complaints of Stiff Neck. kb 13:14 Pt is a 58 year old female who presents with decreased ROM and pain to neck that kb started Tuesday. States she had some stiffness to shoulders on Tuesday so she had accupuncture done, then had a massage on Tuesday. States she wasn't able to full move her neck when she woke up on Tuesday. Went back to massage therapist today and had infrared light done, but still has decreased ROM so she came to get imaging to make sure nothing else is going on. . Historical: - Allergies: 13:08 Codeine (Vomiting); ko1 13:08 SHELLFISH; ko1 - PMHx: 13:08 Anxiety; Hypothyroidism; ko1 - PSHx: 13:08 section; ko1 - Immunization history:: Adult Immunizations up to date. - Infectious Disease History:: Denies. - Social history:: Smoking status: Patient denies any tobacco usage or history of. ROS: 13:14 Constitutional: As per HPI kb Exam: 13:14 Constitutional: This is a well developed, well nourished patient who is awake, alert, kb and in no acute distress. Head/Face: Normocephalic, atraumatic. ENT: Moist Mucous membranes Cardiovascular: Regular rate Respiratory: Respirations even and unlabored. No increased work of breathing. Talking in full sentences Abdomen/GI: Soft, non-tender. No distention Back: No spinal tenderness. No costovertebral tenderness. Full range of motion. Skin: Warm, dry with normal turgor. Normal color. MS/ Extremity: Pulses equal, no cyanosis. Neurovascular intact. Full, normal range of motion. Neuro: Awake and alert, GCS 15, oriented to person, place, time, and situation. Moves all extremities. Normal gait. 13:14 Neck: External neck: tenderness, that is mild, of the left mid cervical area and left trapezius, ROM/movement: pain, that is mild, with any movement, limited range of motion, that is mild, in any direction, Vital Signs: 13:05 BP 161 / 65; Pulse 79; Resp 17; Temp 97; Pulse Ox 100% ; ko1 14:45 BP 161 / 61; Pulse 71; Resp 17; Pulse Ox 100% ; Pain 8/10; ll1 14:45 Pain Scale: Adult ll1 MDM: 13:07 Patient medically screened. kb 13:17 Data reviewed: vital signs, nurses notes. kb 14:34 Differential diagnosis: Cervical Raiculopathy cervical strain, torticollis. Test kb considered but Not performed: MRI: MRI neck considered. Pt educated to follow up with PCP for outpatient MRI as needed. Counseling: I had a detailed discussion with the patient and/or guardian regarding the historical points, exam findings, and any diagnostic results supporting the discharge/admit diagnosis, radiology results, the need for outpatient follow up, a family practitioner, to return to the emergency department if symptoms worsen or persist or if there are any questions or concerns that arise at home. 01/23 13:14 Order name: CT C Spine; Complete Time: 14:23 kb Administered Medications: 13:55 Drug: Dexamethasone IM 10 mg IM once Route: IM; Site: left vastus lateralis; ll1 14:42 Follow up: Response: No adverse reaction; Pain is unchanged, physician notified; RASS: ll1 Alert and Calm (0) 14:42 Drug: [place] PO 10 mg-325 mg 1 tabs PO once Route: PO; ll1 14:45 Follow up: Response: No adverse reaction; Pain is unchanged, physician notified; RASS: ll1 Alert and Calm (0) Disposition: 17:18 Co-signature as Attending Physician, Kyaw Monzon MD I reviewed the patient's care rn provided by the Advanced Practice Provider and agree with the diagnosis and treatment plan. Disposition Summary: 01/24/24 14:37 Discharge Ordered Notes: Location: Home kb Condition: Stable kb Diagnosis - Neck Pain kb Followup: kb - With: Emergency Department - When: As needed - Reason: Worsening of condition Followup: kb - With: Private Physician - When: 2 - 3 days - Reason: Recheck today's complaints, Continuance of care, Re-evaluation by your physician Discharge Instructions: - Discharge Summary Sheet kb - Musculoskeletal Pain kb Forms: - Medication Reconciliation Form kb - Antibiotic Education kb - Prescription Opioid Use kb - Patient Portal Instructions kb - Leadership Thank You Letter Prescriptions: - Diclofenac Sodium 75 mg Oral tablet, delayed release (enteric coated) - take 1 tablet ORAL route 2 times per day As needed; 30 tablet; Refills: 0, kb Product Selection Permitted - orphenadrine citrate 100 mg Oral Tablet Sustained Release - take 1 tablet ORAL route 2 times per day As needed; 20 tablet; Refills: 0, kb Product Selection Permitted Signatures: Dispatcher [employer] Chanelle Pa, INVESTMENT SPECIALIST-C INVESTMENT SPECIALIST-Ckb Kyaw Monzon MD MD rn Lewis, Lynsay RN RN ll1 Aleida Mckeon RN RN ko1
--- NOTE | 2024-01-24 14:38 | ER ---
Nurse's Notes [facility] Name: Neris Cano Age: 58 yrs Sex: Female : 1965 Arrival Date: 01/24/2024 Time: 12:54 Bed 11 Private MD: Diagnosis: Neck Pain Presentation: 01/23 13:05 Chief complaint: Patient states: Tuesday had acupuncture, Tuesday had a massage because ko1 shoulders were stiff, now still cant move neck unless i hold pressure on it. Coronavirus screen: At this time, the client does not indicate any symptoms associated with coronavirus-19. Ebola Screen: No symptoms or risks identified at this time. Initial Sepsis Screen: Does the patient meet any 2 criteria? No. Patient's initial sepsis screen is negative. Does the patient have a suspected source of infection? No. Patient's initial sepsis screen is negative. Risk Assessment: Do you want to hurt yourself or someone else? Patient reports no desire to harm self or others. Onset of symptoms was January 24, 2024. 13:05 Method Of Arrival: Ambulatory ko1 13:05 Acuity: KIANA 3 ko1 Triage Assessment: 13:08 General: Appears in no apparent distress. Behavior is calm, cooperative, appropriate ko1 for age. Pain: Complains of pain in neck. Historical: - Allergies: 13:08 Codeine (Vomiting); ko1 13:08 SHELLFISH; ko1 - PMHx: 13:08 Anxiety; Hypothyroidism; ko1 - PSHx: 13:08 section; ko1 - Immunization history:: Adult Immunizations up to date. - Infectious Disease History:: Denies. - Social history:: Smoking status: Patient denies any tobacco usage or history of. Screenin:25 [facility] ED Fall Risk Assessment (Adult) History of falling in the last 3 months, ko1 including since admission No falls in past 3 months (0 pts) Confusion or Disorientation No (0 pts) Intoxicated or Sedated No (0 pts) Impaired Gait No (0 pts) Mobility Assist Device Used No (0 pt) Altered Elimination No (0 pt) Score/Fall Risk Level 0 - 2 = Low Risk Oriented to surroundings, Maintained a safe environment, Educated pt \T\ family on fall prevention, incl call for assistance when getting out of bed, Assessed \T\ reinforced patient's understanding of fall precautions, Hourly rounding (assess needs \T\ fall precautionary measures) done. Abuse screen: Denies threats or abuse. Denies injuries from another. Nutritional screening: No deficits noted. Tuberculosis screening: No symptoms or risk factors identified. Assessment: 13:26 Reassessment: see triage note. ko1 13:56 General: Appears uncomfortable, Behavior is calm, cooperative, appropriate for age. ll1 Pain: Complains of pain in head Quality of pain is described as aching, tender. Neuro: Reports headache head feels tender. Musculoskeletal: Reports pain and stiffness to neck. 14:45 Reassessment: No changes from previously documented assessment. Patient and/or family ll1 updated on plan of care and expected duration. Pain level reassessed. Patient is alert, oriented x 3, equal unlabored respirations, skin warm/dry/pink. Vital Signs: 13:05 BP 161 / 65; Pulse 79; Resp 17; Temp 97; Pulse Ox 100% ; ko1 14:45 BP 161 / 61; Pulse 71; Resp 17; Pulse Ox 100% ; Pain 8/10; ll1 14:45 Pain Scale: Adult ll1 ED Course: 12:55 Patient arrived in ED. im 13:07 [facility] Cort[facility] kb 13:07 Kyaw Monzon MD is Attending Physician. kb 13:08 Triage completed. ko1 13:08 Arm band placed on left wrist. Patient placed in waiting room, Patient notified of wait ko1 time. 13:25 Patient has correct armband on for positive identification. Provided Education on: meds.ko1 13:25 No provider procedures requiring assistance completed. Patient did not have IV access ko1 during this emergency room visit. 13:30 CT C Spine In Process Unspecified. EDMS 13:49 Patient placed in an exam room, on a stretcher. ll1 13:56 Ivy Ramirez RN is Primary Nurse. ll1 Administered Medications: 13:55 Drug: Dexamethasone IM 10 mg IM once Route: IM; Site: left vastus lateralis; ll1 14:42 Follow up: Response: No adverse reaction; Pain is unchanged, physician notified; RASS: ll1 Alert and Calm (0) 14:42 Drug: [place] PO 10 mg-325 mg 1 tabs PO once Route: PO; ll1 14:45 Follow up: Response: No adverse reaction; Pain is unchanged, physician notified; RASS: ll1 Alert and Calm (0) Medication: 13:25 VIS not applicable for this client. ko1 Outcome: 14:37 Discharge ordered by . babak 14:45 Discharged to home ambulatory, ll1 14:45 Condition: stable 14:45 Discharge instructions given to patient, Instructed on discharge instructions, follow up and referral plans. no drinking with medication, no driving heavy equipment, medication usage, Demonstrated understanding of instructions, follow-up care, medications, Prescriptions given X 2, 14:47 Patient left the ED. 1 Signatures: Dispatcher [employer] EDMS Chanelle Cortes, OB/GYN-C JOHN-Ivy Yost RN RN ll1 Aleida Mckeon RN RN ko1 Berkley Berman
[2024-01-24] MEDS ORDERED: HYDROCODONE/APAP 10/325 TAB ONE (14:39)
[2024-01-24 16:17] VITALS: TEMP 97; O2SAT 100
[2024-01-24 16:19] VITALS: BP 161/61
== END 2024-01-24 14:47 | disposition home or self-care (01) ==
LOC: ER 12:54
DX: M54.2 Cervicalgia (principal)
CPT/HCPCS: 72125; J1100; 96372; 99284